=== PATIENT | female | born 1950 | race Caucasian/White ===

== ENCOUNTER 2019-05-14 06:09 | Inpatient (IN) | payer OTHER ==
[2019-05-14] MEDS ORDERED: NA CHLORIDE 0.9% 1,000 ML ONE (06:32)
[2019-05-14] MEDS ORDERED: ONDANSETRON 4 MG/2 ML VIAL ONE (06:33)
[2019-05-14 06:46] LABS: Absolute Lymphocytes (CBC) 0.2 K/uL (0.7-4.9); Basophils % 0.3 % (0-1.3); Hematocrit 44.2 % (36.0-45.0); Lymphocytes % 1.9 % (15.3-44.8); MPV 8.4 fL (7.6-11.3); RBC Red Blood Cell Count 4.93 M/uL (3.86-4.86)
[2019-05-14 07:11] LABS: Albumin 4.3 g/dL (3.4-5.0); Bilirubin Direct 0.2 mg/dL (0-0.2); Bilirubin Total 0.8 mg/dL (0.2-1.0); Blood Morphology Comment NOT SEEN (NOT SEEN); Platelet Estimate ADEQ; Potassium 3.8 mmol/L (3.5-5.1); Protein, Total 7.8 g/dL (6.4-8.2); Urine White Blood Cell Casts OK
--- NOTE | 2019-05-14 08:12 | RAD REPORT ---
EXAM DESCRIPTION: CTAbdomen Pelvis W Contrast - 05/14/2019 7:42 am CLINICAL HISTORY: Abdominal pain. NAUSEA / VOMITING COMPARISON: Abdomen Pelvis W Contrast dated 08/30/2017; CT ABD PELVIS W CONTRAST dated 03/09/2014; CT ABD PELVIS W CONTRAST dated 09/16/2012; CT ABD PELVIS W CONTRAST dated 04/21/2009 TECHNIQUE: Biphasic CT imaging of the abdomen and pelvis was performed with 100 ml non-ionic IV cont rast. All CT scans are performed using dose optimization technique as appropriate and may include automated exposure control or mA/KV adjustment according to patient size. FINDINGS: The lung bases are clear.Cholecystectomy. The liver, spleen, pancreas, adrenal glands and kidneys are within normal limits. No bowel obstruction, free air, free fluid or abscess. Mildly prominent fluid-filled small bowel loop s seen. The appendix is normal. No evidence of significant lymphadenopathy. L5-S1 postsurgical changes. IMPRESSION: Mildly prominent fluid-filled small bowel loops are present suggesting a nonspecific ent eritis.
[2019-05-14] MEDS ORDERED: PROMETHAZINE 25 MG/ML VIAL ONE (09:05)
[2019-05-14] MEDS ORDERED: Ringers Lactate 1,000 ML IV ONE (09:07)
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
[2019-05-14 09:19] LABS: Urine Blood NEGATIVE (NEG); Urine Glucose NEGATIVE (NEG); Urine Protein NEGATIVE (NEG); Urine Specific Gravity 1.015 (1.005-1.030); Urine pH 8.5 (5.0-7.0)
[2019-05-14] MEDS ORDERED: ONDANSETRON 4 MG/2 ML VIAL IV PRN (10:34)
[2019-05-14 10:50] VITALS: BMI 19.9
[2019-05-14] MEDS: Ringers Lactate 1,000 ML IV SCH ×2 (11:02→20:52)
[2019-05-14] MEDS ORDERED: PREDNISONE 4 MG PO SCH (17:00)
[2019-05-14] MEDS ORDERED: ACETAMINOPHEN 500 MG TAB PO PRN (17:30)
[2019-05-14] MEDS: CIPROFLOXACIN 400mg IV 400 MG/200 ML BAG IV SCH ×2 (18:14→20:52)
[2019-05-14 19:52] LABS: Urine Appearance CLEAR; Urine Bilirubin NEGATIVE (NEG); Urine Blood NEGATIVE (NEG); Urine Color YELLOW; Urine Glucose NEGATIVE (NEG); Urine Protein NEGATIVE (NEG); Urine Specific Gravity >=1.030 (1.005-1.030); Urine Urobilinogen 0.2 mg/dL (0.2-1.0); Urine pH 6.5 (5.0-7.0)
[2019-05-14 19:53] LABS: Urine Microscopic Reflex NO UMIC
[2019-05-14] MEDS ORDERED: ENOXAPARIN 30 MG/0.3 ML SQ ONE (21:13)
[2019-05-14] MEDS ORDERED: NA CHLORIDE 0.9% 250 ML IV ONE (21:13)
[2019-05-14] MEDS: HYDROCORTISONE SUC 100 MG INJ IV SCH (21:30)
[2019-05-14] MEDS ORDERED: NA CHLORIDE 0.9% 1,000 ML IV SCH (22:00)
[2019-05-15] MEDS: HYDROCORTISONE SUC 100 MG INJ IV SCH ×2 (00:15→05:39)
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
[2019-05-15 05:42] LABS: Absolute Lymphocytes (CBC) 0.4 K/uL (0.7-4.9); Basophils % 0.3 % (0-1.3); Hematocrit 34.2 % (36.0-45.0); Lymphocytes % 5.3 % (15.3-44.8); MPV 8.1 fL (7.6-11.3); RBC Red Blood Cell Count 3.79 M/uL (3.86-4.86)
[2019-05-15 05:58] LABS: Albumin 2.8 g/dL (3.4-5.0); Bilirubin Total 0.7 mg/dL (0.2-1.0); Potassium 3.8 mmol/L (3.5-5.1); Protein, Total 5.2 g/dL (6.4-8.2)
[2019-05-15] MEDS ORDERED: PANTOPRAZOLE 40MG TABLET PO SCH (06:30)
[2019-05-15] MEDS: NA CHLORIDE 0.9% 1,000 ML IV SCH ×2 (08:00→10:01)
[2019-05-15] MEDS ORDERED: PREDNISONE 5 MG TABLET PO SCH (09:00)
[2019-05-15] MEDS: PANTOPRAZOLE 40 MG TABLET PO SCH (09:00)
[2019-05-15] MEDS: SUCRALFATE 1 GM TABLET PO SCH (10:00)
[2019-05-15] MEDS: CIPROFLOXACIN 400mg IV 400 MG/200 ML BAG IV SCH ×2 (10:01→21:08)
[2019-05-15] MEDS: predniSONE 20 MG TAB PO SCH ×2 (10:01→21:08)
[2019-05-15] MEDS: TOFACITINIB CITRATE 11 MG PO SCH (10:02)
[2019-05-15 12:00] VITALS: O2SAT 96
--- NOTE | 2019-05-16 00:37 | PN ---
Date of Progress Note: 05/15/2019 Subjective: Patient was seen this morning for followup. She has felt better overnight. No abdomina l pain. No vomiting. Diarrhea is better. Objective: Vital Signs: Reviewed. HEENT: Unremarkable. Lungs: Clear to auscultation. Heart: Sounds normal. Abdomen: Soft. Bowel sounds normal. No guarding, rigidity, tenderness, distention. Extremities: No leg edema. Laboratory Data: White count 6.9, hemoglobin 12.1, platelets 172. Sodium 146, potassium 3.8, chlori de 115, bicarb 25, BUN 10, creatinine 0.78, glucose 127. Liver function tests unremarkable. Impression: 1.Acute gastroenteritis. 2.Volume depletion. 3.Chronic steroid therapy for rheumatoid arthritis. 4.Patient's blood pressure has improved after I saw her yesterday. Her systolic blood pressure drop ped down to 80 to 86 systolic range. Plan: She was given IV fluid bolus as well as IV steroid therapy was started. Solu-Cortef 100 mg ev enrrique 6 hours. She got 2 doses of Solu-Cortef overnight. This morning, she was feeling much better an d she is tolerating clear liquid diet well, so we will go ahead and advance it to soft diet. Discont inue IV steroid and start her on oral prednisone 20 mg b.i.d. today and starting tomorrow we will red uce dose of prednisone. Possible discharge to go home tomorrow depending on her condition. KYMBERLY/MODL Voice ID: [id number] Report ID: [id number]
[2019-05-16] MEDS: NA CHLORIDE 0.9% 1,000 ML IV SCH (04:00)
[2019-05-16] MEDS: SUCRALFATE 1 GM TABLET PO SCH (07:30)
[2019-05-16 08:18] VITALS: BP 108/58; TEMP 98.4
[2019-05-16] MEDS: CIPROFLOXACIN 400mg IV 400 MG/200 ML BAG IV SCH (08:33)
[2019-05-16] MEDS: predniSONE 20 MG TAB PO SCH (08:33)
[2019-05-16] MEDS: TOFACITINIB CITRATE 11 MG PO SCH (08:33)
[2019-05-16] MEDS: PANTOPRAZOLE 40 MG TABLET PO SCH (08:34)
--- NOTE | 2019-05-17 04:54 | DS ---
Date of Discharge: 05/16/2019 Disposition: Discharged to go home. Physical Examination: HEENT: Unremarkable. Lungs: Clear to auscultation. Heart: Heart sounds normal. Abdomen: Soft, bowel sounds normal. No guarding, rigidity, tenderness, or distention. Extremities: No leg edema. Discharge Medications And Instructions: 1.Continue all prior home medications except change prednisone, take 10 mg 2 tablets by mouth daily for 2 days, then 1 tablet by mouth daily for 2 days, then stop this particular dose and resume your u sual dose of prednisone, which is 5 mg 1 day and 4 mg next day. 2.Take Cipro 500 mg 2 times a day for 1 week. 3.Follow up at my office at 9:00 a.m. on 05/21/2019. Hospital Course: This is a 68-year-old female patient admitted to hospital with nausea, vomiting, an d diarrhea. Please see dictated H and P for more information. After patient was evaluated in the em ergency room, she was admitted to the hospital with acute gastroenteritis. She is on chronic steroid therapy for rheumatoid arthritis and systemic lupus erythematosus, which is being managed by her [facility] umatologist and she takes prednisone 5 mg 1 day and 4 mg next day. After she came into the hospital she was started on IV fluids. She did have episode of hypotension in the evening of admission with s ystolic blood pressure between 80-86, and she was given IV fluid bolus and IV steroid was started. H er condition improved. She was also started on IV antibiotic, which was Cipro. Day after admission, her condition improved and she initially was on clear liquid diet and as of yesterday she was starte d on soft diet. She has tolerated diet very well. Her nausea, vomiting, and diarrhea problem resolv ed. She started ambulating well and today we were able to discharge her to go home in stable conditi on with above-mentioned medications and instructions. Final Diagnoses: 1.Acute gastroenteritis. 2.Volume depletion. 3.Chronic steroid therapy. 4.Rheumatoid arthritis. 5.Gastroesophageal reflux disease. 6.Osteoporosis. Laboratory Data: Labs done during this hospitalization; initial sodium 143, potassium 3.8, chloride 108, bicarb 29, BUN 23, creatinine 0.93, glucose 124. Liver function tests unremarkable except SGOT 52. Initial lipase 2261, repeat lipase 327, which was normal. Repeat liver function test was normal on 05/15/2019. Creatinine 0.78. Initial white count 11.9, hemoglobin 15.3, platelets 208. Repeat white count 6.9, hemoglobin 12.1, platelets 172. KYMBERLY/MODL Voice ID: [id number] Report ID: [id number]
== END 2019-05-16 08:57 | disposition home or self-care (01) | DRG 392 ==
LOC: ER 06:09 → ERHOLD 09:09 → 2ND 09:44 → OBSVTOIN 21:14
PROVIDERS: ADMIT Internal Medicine; ATTEND Internal Medicine
DX: K52.9 Noninfective gastroenteritis and colitis, unspecified (principal); E86.9 Volume depletion, unspecified; M06.9 Rheumatoid arthritis, unspecified; K21.9 Gastro-esophageal reflux disease without esophagitis; M81.0 Age-related osteoporosis without current pathological fracture; M32.9 Systemic lupus erythematosus, unspecified; Z79.52 Long term (current) use of systemic steroids
CPT/HCPCS: 36415; 74177; 80048; 80053; 80076; 81003; 83690; 83735; 85025; 96361; 96374; 96375; 99285; G0378; J0744; J1650; J1720; J2405; J2550; J7030; J7120; J7512; Q9967

== ENCOUNTER 2023-02-17 18:33 | Emergency (ER) | payer OTHER ==
--- OUTSIDE RECORDS SUMMARY | 2023-02-17 18:42 | XMS REPORT | Continuity of Care Document ---
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 Omnipaque Yes Notes: Memori a 300 4-21 (Same l 15:54: as:Omnipaq [place] 00 ue 300). WASTE: F/P - Black; E - Municipal Trash Bin Omnipaque Yes Notes: Memori a 300 4-21 (Same l 15:54: as:Omnipaq [place] 00 ue 300). WASTE: F/P - Black; E - Municipal Trash Bin Omnipaque Yes Notes: Memori a 300 4-21 (Same l 15:54: as:Omnipaq [place] ue 300). WASTE: F/P - Black; E - Municipal Trash Bin Omnipaque Yes Notes: Memori a 300 4-21 (Same l 15:54: as:Omnipaq [place] ue 300). WASTE: F/P - Black; E - Municipal Trash Bin Omnipaque Yes Notes: Memori a 300 4-21 (Same l 15:54: as:Omnipaq [place] ue 300). WASTE: F/P - Black; E - Municipal Trash Bin Omnipaque Yes Notes: Memori a 300 4-21 (Same l 15:54: as:Omnipaq [place] ue 300). WASTE: F/P - Black; E - Municipal Trash Bin Omnipaque Yes Notes: Memori a 300 4-21 (Same l 15:54: as:Omnipaq [place] ue 300). WASTE: F/P - Black; E - Municipal Trash Bin Omnipaque Yes Notes: Memori a 300 4-21 (Same l 15:54: as:Omnipaq [place] ue 300). WASTE: F/P - Black; E - Municipal Trash Bin Lactated No 1,000 mL, Maurilio cyndy Ringers 10-22 Rate: 125 l 1,000 mL 14:57: ml/hr, Infuse over: 8 hr, Route: IV, Dosing Weight 50 kg, Total Volume: 1,000, Start date: 10/22/16 9:57:00 CDT, Duration: 30 day, Stop date: 11/21/16 9:56:00 CDT Ondansetron No Notes: Maurilio cyndy 10-22 (Same as: l 14:57: Zofran) MEDICATION WASTE Product Size: 4 mg Product Wasted: ___ mg Promethazin No Notes: Do M emoria e 10-22 not give l 14:57: IV push. (Same as: Phenergan) Acetaminoph No Notes: Do M emoria en 325 MG / 4-21 not exceed l Hydrocodone 14:57: 4gm/day of [place] Bitartrate 00 acetaminop 10 MG Oral hen. (Same Tablet as: [place] 325/10) Hydromorpho No Notes: Maurilio cyndy ne 4-21 Same as l 14:57: Dilaudid [place] 00 Lactated No 1,000 mL, Maurilio cyndy Ringers 4-21 Rate: 125 l 1,000 mL 14:57: ml/hr, [place] 00 Infuse over: 8 hr, Route: IV, Dosing Weight 50 kg, Total Volume: 1,000, Start date: 10/22/16 9:57:00 CDT, Duration: 30 day, Stop date: 11/21/16 9:56:00 CDT Ondansetron No Notes: Maurilio cyndy 4-21 (Same as: l 14:57: Zofran) [place] 00 MEDICATION WASTE Product Size: 4 mg Product Wasted: ___ mg Promethazin No Notes: Do M emoria e 4-21 not give l 14:57: IV push. [place] 00 (Same as: Phenergan) Acetaminoph No Notes: Do M emoria en 325 MG / 4-21 not exceed l Hydrocodone 14:57: 4gm/day of [place] Bitartrate 00 acetaminop 10 MG Oral hen. (Same Tablet as: [place] 325/10) Hydromorpho No Notes: Maurilio cyndy ne 4-21 Same as l 14:57: Dilaudid [place] 00 Lactated No 1,000 mL, Maurilio cyndy Ringers 4-21 Rate: 125 l 1,000 mL 14:57: ml/hr, [place] 00 Infuse over: 8 hr, Route: IV, Dosing Weight 50 kg, Total Volume: 1,000, Start date: 10/22/16 9:57:00 CDT, Duration: 30 day, Stop date: 11/21/16 9:56:00 CDT Ondansetron No Notes: Maurilio cyndy 4-21 (Same as: l 14:57: Zofran) [place] 00 MEDICATION WASTE Product Size: 4 mg Product Wasted: ___ mg Promethazin No Notes: Do M emoria e 4-21 not give l 14:57: IV push. [place] 00 (Same as: Phenergan) Acetaminoph No Notes: Do M emoria en 325 MG / 4-21 not exceed l Hydrocodone 14:57: 4gm/day of [place] Bitartrate 00 acetaminop 10 MG Oral hen. (Same Tablet as: [place] 325/10) Hydromorpho No Notes: Maurilio cyndy ne 4-21 Same as l 14:57: Dilaudid [place] 00 Lactated No 1,000 mL, Maurilio cyndy Ringers 4-21 Rate: 125 l 1,000 mL 14:57: ml/hr, [place] 00 Infuse over: 8 hr, Route: IV, Dosing Weight 50 kg, Total Volume: 1,000, Start date: 10/22/16 9:57:00 CDT, Duration: 30 day, Stop date: 11/21/16 9:56:00 CDT Ondansetron No Notes: Maurilio cyndy 4-21 (Same as: l 14:57: Zofran) [place] 00 MEDICATION WASTE Product Size: 4 mg Product Wasted: ___ mg Promethazin No Notes: Do M emoria e 4-21 not give l 14:57: IV push. [place] 00 (Same as: Phenergan) Acetaminoph No Notes: Do M emoria en 325 MG / 4-21 not exceed l Hydrocodone 14:57: 4gm/day of [place] Bitartrate 00 acetaminop 10 MG Oral hen. (Same Tablet as: [place] 325/10) Hydromorpho No Notes: Maurilio cyndy ne 4-21 Same as l 14:57: Dilaudid [place] 00 Lactated No 1,000 mL, Maurilio cyndy Ringers 4-21 Rate: 125 l 1,000 mL 14:57: ml/hr, [place] 00 Infuse over: 8 hr, Route: IV, Dosing Weight 50 kg, Total Volume: 1,000, Start date: 10/22/16 9:57:00 CDT, Duration: 30 day, Stop date: 11/21/16 9:56:00 CDT Ondansetron No Notes: Maurilio cyndy 4-21 (Same as: l 14:57: Zofran) [place] MEDICATION WASTE Product Size: 4 mg Product Wasted: ___ mg Promethazin No Notes: Do M emoria e 4-21 not give l 14:57: IV push. [place] (Same as: Phenergan) Acetaminoph No Notes: Do M emoria en 325 MG / 4-21 not exceed l Hydrocodone 14:57: 4gm/day of [place] Bitartrate 00 acetaminop 10 MG Oral hen. (Same Tablet as: [place] 325/10) Hydromorpho No Notes: Maurilio cyndy ne 4-21 Same as l 14:57: Dilaudid [place] Lactated No 1,000 mL, Maurilio cyndy Ringers 10-22 Rate: 125 l 1,000 mL 14:57: ml/hr, [place] 00 Infuse over: 8 hr, Route: IV, Dosing Weight 50 kg, Total Volume: 1,000, Start date: 10/22/16 9:57:00 CDT, Duration: 30 day, Stop date: 11/21/16 9:56:00 CDT Ondansetron No Notes: Maurilio cyndy 4-21 (Same as: l 14:57: Zofran) [place] 00 MEDICATION WASTE Product Size: 4 mg Product Wasted: ___ mg Promethazin No Notes: Do M emoria e 4-21 not give l 14:57: IV push. [place] (Same as: Phenergan) Acetaminoph No Notes: Do M emoria en 325 MG / 4-21 not exceed l Hydrocodone 14:57: 4gm/day of [place] Bitartrate 00 acetaminop 10 MG Oral hen. (Same Tablet as: [place] 325/10) Hydromorpho No Notes: Maurilio cyndy ne 4-21 Same as l 14:57: Dilaudid [place] 00 Lactated No 1,000 mL, Maurilio cyndy Ringers 4-21 Rate: 125 l 1,000 mL 14:57: ml/hr, [place] 00 Infuse over: 8 hr, Route: IV, Dosing Weight 50 kg, Total Volume: 1,000, Start date: 10/22/16 9:57:00 CDT, Duration: 30 day, Stop date: 11/21/16 9:56:00 CDT Ondansetron No Notes: Maurilio cyndy 4-21 (Same as: l 14:57: Zofran) [place] 00 MEDICATION WASTE Product Size: 4 mg Product Wasted: ___ mg Promethazin No Notes: Do M emoria e 4-21 not give l 14:57: IV push. [place] (Same as: Phenergan) Acetaminoph No Notes: Do M emoria en 325 MG / 4-21 not exceed l Hydrocodone 14:57: 4gm/day of [place] Bitartrate 00 acetaminop 10 MG Oral hen. (Same Tablet as: [place] 325/10) Hydromorpho No Notes: Maurilio cyndy ne 4-21 Same as l 14:57: Dilaudid [place] 00 Lactated No 1,000 mL, Maurilio cyndy Ringers 4-21 Rate: 125 l 1,000 mL 14:57: ml/hr, [place] 00 Infuse over: 8 hr, Route: IV, Dosing Weight 50 kg, Total Volume: 1,000, Start date: 10/22/16 9:57:00 CDT, Duration: 30 day, Stop date: 11/21/16 9:56:00 CDT Ondansetron No Notes: Maurilio cyndy 4-21 (Same as: l 14:57: Zofran) [place] 00 MEDICATION WASTE Product Size: 4 mg Product Wasted: ___ mg Promethazin No Notes: Do M emoria e 4-21 not give l 14:57: IV push. [place] 00 (Same as: Phenergan) Acetaminoph No Notes: Do M emoria en 325 MG / 4-21 not exceed l Hydrocodone 14:57: 4gm/day of [place] Bitartrate 00 acetaminop 10 MG Oral hen. (Same Tablet as: [place] 325/10) Hydromorpho 2017-0 No Notes: Maurilio cyndy ne 4-21 Same as l 14:57: Dilaudid [place] 00 Lactated 2017-0 No 1,000 mL, Maurilio cyndy Ringers 4-21 Rate: 125 l 1,000 mL 13:47: ml/hr, [place] 00 Infuse over: 8 hr, Route: IV, Dosing Weight 50 kg, Total Volume: 1,000, Start date: 10/22/16 8:47:00 CDT, Duration: 30 day, Stop date: 11/21/16 8:46:00 CDT Lactated 2017-0 No 1,000 mL, Maurilio cyndy Ringers 4-21 Rate: 125 l 1,000 mL 13:47: ml/hr, [place] 00 Infuse over: 8 hr, Route: IV, Dosing Weight 50 kg, Total Volume: 1,000, Start date: 10/22/16 8:47:00 CDT, Duration: 30 day, Stop date: 11/21/16 8:46:00 CDT Lactated 2017-0 No 1,000 mL, Maurilio cyndy Ringers 4-21 Rate: 125 l 1,000 mL 13:47: ml/hr, [place] 00 Infuse over: 8 hr, Route: IV, Dosing Weight 50 kg, Total Volume: 1,000, Start date: 10/22/16 8:47:00 CDT, Duration: 30 day, Stop date: 11/21/16 8:46:00 CDT Lactated 2017-0 No 1,000 mL, Maurilio cyndy Ringers 4-21 Rate: 125 l 1,000 mL 13:47: ml/hr, [place] 00 Infuse over: 8 hr, Route: IV, Dosing Weight 50 kg, Total Volume: 1,000, Start date: 10/22/16 8:47:00 CDT, Duration: 30 day, Stop date: 11/21/16 8:46:00 CDT Lactated 2017-0 No 1,000 mL, Maurilio cyndy Ringers 4-21 Rate: 125 l 1,000 mL 13:47: ml/hr, [place] 00 Infuse over: 8 hr, Route: IV, Dosing Weight 50 kg, Total Volume: 1,000, Start date: 10/22/16 8:47:00 CDT, Duration: 30 day, Stop date: 11/21/16 8:46:00 CDT Lactated 2017-0 No 1,000 mL, Maurilio cyndy Ringers 4-21 Rate: 125 l 1,000 mL 13:47: ml/hr, [place] 00 Infuse over: 8 hr, Route: IV, Dosing Weight 50 kg, Total Volume: 1,000, Start date: 10/22/16 8:47:00 CDT, Duration: 30 day, Stop date: 11/21/16 8:46:00 CDT Lactated 2017-0 No 1,000 mL, Maurilio cyndy Ringers 4-21 Rate: 125 l 1,000 mL 13:47: ml/hr, [place] 00 Infuse over: 8 hr, Route: IV, Dosing Weight 50 kg, Total Volume: 1,000, Start date: 10/22/16 8:47:00 CDT, Duration: 30 day, Stop date: 11/21/16 8:46:00 CDT Lactated 2017-0 No 1,000 mL, Maurilio cyndy Ringers 4-21 Rate: 125 l 1,000 mL 13:47: ml/hr, [place] 00 Infuse over: 8 hr, Route: IV, Dosing Weight 50 kg, Total Volume: 1,000, Start date: 10/22/16 8:47:00 CDT, Duration: 30 day, Stop date: 11/21/16 8:46:00 CDT Promethazin No Notes: Do M emokaylaha e 09-23 not give l 14:17: IV push. (Same as: Phenergan) Hydromorpho No Notes: Maurilio cyndy ne -23 Same as l 14:17: Dilaudid Ondansetron No Notes: Maurilio cyndy 3-23 (Same as: l 14:17: Zofran) MEDICATION WASTE Product Size: 4 mg Product Wasted: ___ mg Lactated 2016-0 No 1,000 mL, Maurilio cyndy Ringers 3-23 Rate: 125 l 1,000 mL 14:17: ml/hr, [place] 00 Infuse over: 8 hr, Route: IV, Dosing Weight 50.909 kg, Total Volume: 1,000, Start date: 09/23/16 9:17:00 CDT, Duration: 30 day, Stop date: 10/23/16 9:16:00 CDT Acetaminoph No Notes: Do M emoria en 325 MG / 3-23 not exceed l Hydrocodone 14:17: 4gm/day of [place] Bitartrate 00 acetaminop 10 MG Oral hen. (Same Tablet as: [place] 325/10) Promethazin No Notes: Do M emoria e 3-23 not give l 14:17: IV push. [place] 00 (Same as: Phenergan) Hydromorpho No Notes: Maurilio cyndy ne 3-23 Same as l 14:17: Dilaudid [place] Ondansetron No Notes: Maurilio cyndy 3-23 (Same as: l 14:17: Zofran) [place] 00 MEDICATION WASTE Product Size: 4 mg Product Wasted: ___ mg Lactated No 1,000 mL, Maurilio cyndy Ringers - Rate: 125 l 1,000 mL 14:17: ml/hr, [place] 00 Infuse over: 8 hr, Route: IV, Dosing Weight 50.909 kg, Total Volume: 1,000, Start date: 09/23/16 9:17:00 CDT, Duration: 30 day, Stop date: 10/23/16 9:16:00 CDT Acetaminoph No Notes: Do M emoria en 325 MG / 3-23 not exceed l Hydrocodone 14:17: 4gm/day of [place] Bitartrate 00 acetaminop 10 MG Oral hen. (Same Tablet as: [place] 325/10) Promethazin No Notes: Do M emoria e 3-23 not give l 14:17: IV push. [place] 00 (Same as: Phenergan) Hydromorpho No Notes: Maurilio cyndy ne 3-23 Same as l 14:17: Dilaudid [place] Ondansetron No Notes: Maurilio cyndy 3-23 (Same as: l 14:17: Zofran) [place] 00 MEDICATION WASTE Product Size: 4 mg Product Wasted: ___ mg Lactated No 1,000 mL, Maurilio cyndy Ringers 3-23 Rate: 125 l 1,000 mL 14:17: ml/hr, [place] 00 Infuse over: 8 hr, Route: IV, Dosing Weight 50.909 kg, Total Volume: 1,000, Start date: 09/23/16 9:17:00 CDT, Duration: 30 day, Stop date: 10/23/16 9:16:00 CDT Acetaminoph No Notes: Do M emoria en 325 MG / 3-23 not exceed l Hydrocodone 14:17: 4gm/day of [place] Bitartrate 00 acetaminop 10 MG Oral hen. (Same Tablet as: [place] 325/10) Promethazin No Notes: Do M emoria e 3-23 not give l 14:17: IV push. [place] (Same as: Phenergan) Hydromorpho No Notes: Maurilio cyndy ne -23 Same as l 14:17: Dilaudid [place] 00 Ondansetron No Notes: Maurilio cyndy 3-23 (Same as: l 14:17: Zofran) [place] 00 MEDICATION WASTE Product Size: 4 mg Product Wasted: ___ mg Lactated No 1,000 mL, Maurilio cyndy Ringers 3-23 Rate: 125 l 1,000 mL 14:17: ml/hr, [place] 00 Infuse over: 8 hr, Route: IV, Dosing Weight 50.909 kg, Total Volume: 1,000, Start date: 09/23/16 9:17:00 CDT, Duration: 30 day, Stop date: 10/23/16 9:16:00 CDT Acetaminoph No Notes: Do M emoria en 325 MG / 3-23 not exceed l Hydrocodone 14:17: 4gm/day of [place] Bitartrate 00 acetaminop 10 MG Oral hen. (Same Tablet as: [place] 325/10) Promethazin No Notes: Do M emoria e 3-23 not give l 14:17: IV push. [place] (Same as: Phenergan) Hydromorpho No Notes: Maurilio cyndy ne 3-23 Same as l 14:17: Dilaudid [place] 00 Ondansetron No Notes: Maurilio cyndy 3-23 (Same as: l 14:17: Zofran) [place] 00 MEDICATION WASTE Product Size: 4 mg Product Wasted: ___ mg Lactated No 1,000 mL, Maurilio cyndy Ringers 3-23 Rate: 125 l 1,000 mL 14:17: ml/hr, [place] 00 Infuse over: 8 hr, Route: IV, Dosing Weight 50.909 kg, Total Volume: 1,000, Start date: 09/23/16 9:17:00 CDT, Duration: 30 day, Stop date: 10/23/16 9:16:00 CDT Acetaminoph No Notes: Do M emoria en 325 MG / -23 not exceed l Hydrocodone 14:17: 4gm/day of [place] Bitartrate 00 acetaminop 10 MG Oral hen. (Same Tablet as: [place] 325/10) Promethazin No Notes: Do M emoria e 3-23 not give l 14:17: IV push. [place] 00 (Same as: Phenergan) Hydromorpho No Notes: Maurilio cyndy ne 3-23 Same as l 14:17: Dilaudid Ondansetron No Notes: Maurilio cyndy 3-23 (Same as: l 14:17: Zofran) [place] 00 MEDICATION WASTE Product Size: 4 mg Product Wasted: ___ mg Lactated No 1,000 mL, Maurilio cyndy Ringers 3-23 Rate: 125 l 1,000 mL 14:17: ml/hr, [place] 00 Infuse over: 8 hr, Route: IV, Dosing Weight 50.909 kg, Total Volume: 1,000, Start date: 09/23/16 9:17:00 CDT, Duration: 30 day, Stop date: 10/23/16 9:16:00 CDT Acetaminoph No Notes: Do M emoria en 325 MG / 3-23 not exceed l Hydrocodone 14:17: 4gm/day of [place] Bitartrate 00 acetaminop 10 MG Oral hen. (Same Tablet as: [place] 325/10) Promethazin No Notes: Do M emoria e 3-23 not give l 14:17: IV push. [place] (Same as: Phenergan) Hydromorpho No Notes: Maurilio cyndy ne 3-23 Same as l 14:17: Dilaudid [place] Ondansetron No Notes: Maurilio cyndy 3-23 (Same as: l 14:17: Zofran) [place] 00 MEDICATION WASTE Product Size: 4 mg Product Wasted: ___ mg Lactated No 1,000 mL, Maurilio cyndy Ringers 3-23 Rate: 125 l 1,000 mL 14:17: ml/hr, [place] 00 Infuse over: 8 hr, Route: IV, Dosing Weight 50.909 kg, Total Volume: 1,000, Start date: 09/23/16 9:17:00 CDT, Duration: 30 day, Stop date: 10/23/16 9:16:00 CDT Acetaminoph No Notes: Do M emoria en 325 MG / 09-23 not exceed l Hydrocodone 14:17: 4gm/day of [place] Bitartrate 00 acetaminop 10 MG Oral hen. (Same Tablet as: [place] 325/10) Promethazin No Notes: Do M emoria e -23 not give l 14:17: IV push. [place] 00 (Same as: Phenergan) Hydromorpho No Notes: Maurilio cyndy ne 3-23 Same as l 14:17: Dilaudid [place] 00 Ondansetron No Notes: Maurilio cyndy 3-23 (Same as: l 14:17: Zofran) [place] 00 MEDICATION WASTE Product Size: 4 mg Product Wasted: ___ mg Lactated No 1,000 mL, Maurilio cyndy Ringers 3-23 Rate: 125 l 1,000 mL 14:17: ml/hr, [place] 00 Infuse over: 8 hr, Route: IV, Dosing Weight 50.909 kg, Total Volume: 1,000, Start date: 09/23/16 9:17:00 CDT, Duration: 30 day, Stop date: 10/23/16 9:16:00 CDT Acetaminoph 2017-0 No Notes: Do M emoria en 325 MG / 09-23 not exceed l Hydrocodone 14:17: 4gm/day of [place] Bitartrate 00 acetaminop 10 MG Oral hen. (Same Tablet as: [place] 325/10) Lactated 2017-0 No 1,000 mL, Maurilio cyndy Ringers 3-23 Rate: 125 l 1,000 mL 13:39: ml/hr, [place] 00 Infuse over: 8 hr, Route: IV, Dosing Weight 50.909 kg, Total Volume: 1,000, Start date: 09/23/16 8:39:00 CDT, Duration: 30 day, Stop date: 10/23/16 8:38:00 CDT Lactated 2017-0 No 1,000 mL, Maurilio cyndy Ringers 3-23 Rate: 125 l 1,000 mL 13:39: ml/hr, [place] 00 Infuse over: 8 hr, Route: IV, Dosing Weight 50.909 kg, Total Volume: 1,000, Start date: 09/23/16 8:39:00 CDT, Duration: 30 day, Stop date: 10/23/16 8:38:00 CDT Lactated 2017-0 No 1,000 mL, Maurilio cyndy Ringers 3-23 Rate: 125 l 1,000 mL 13:39: ml/hr, [place] 00 Infuse over: 8 hr, Route: IV, Dosing Weight 50.909 kg, Total Volume: 1,000, Start date: 09/23/16 8:39:00 CDT, Duration: 30 day, Stop date: 10/23/16 8:38:00 CDT Lactated 2017-0 No 1,000 mL, Maurilio cyndy Ringers 3-23 Rate: 125 l 1,000 mL 13:39: ml/hr, [place] 00 Infuse over: 8 hr, Route: IV, Dosing Weight 50.909 kg, Total Volume: 1,000, Start date: 09/23/16 8:39:00 CDT, Duration: 30 day, Stop date: 10/23/16 8:38:00 CDT Lactated 2017-0 No 1,000 mL, Maurilio cyndy Ringers 3-23 Rate: 125 l 1,000 mL 13:39: ml/hr, [place] 00 Infuse over: 8 hr, Route: IV, Dosing Weight 50.909 kg, Total Volume: 1,000, Start date: 09/23/16 8:39:00 CDT, Duration: 30 day, Stop date: 10/23/16 8:38:00 CDT Lactated 2017-0 No 1,000 mL, Maurilio cyndy Ringers 3-23 Rate: 125 l 1,000 mL 13:39: ml/hr, [place] 00 Infuse over: 8 hr, Route: IV, Dosing Weight 50.909 kg, Total Volume: 1,000, Start date: 09/23/16 8:39:00 CDT, Duration: 30 day, Stop date: 10/23/16 8:38:00 CDT Lactated 2017-0 No 1,000 mL, Maurilio cyndy Ringers 3-23 Rate: 125 l 1,000 mL 13:39: ml/hr, [place] 00 Infuse over: 8 hr, Route: IV, Dosing Weight 50.909 kg, Total Volume: 1,000, Start date: 09/23/16 8:39:00 CDT, Duration: 30 day, Stop date: 10/23/16 8:38:00 CDT Lactated 2017-0 No 1,000 mL, Maurilio cyndy Ringers 3-23 Rate: 125 l 1,000 mL 13:39: ml/hr, [place] 00 Infuse over: 8 hr, Route: IV, Dosing Weight 50.909 kg, Total Volume: 1,000, Start date: 09/23/16 8:39:00 CDT, Duration: 30 day, Stop date: 10/23/16 8:38:00 CDT Vitamin D3 2017-0 Yes 2,000 Memori a 2000 intl 3-15 IntlUnit = l units oral 17:19: 1 cap, PO, H ermann capsule 00 Daily, # 100 cap, 3 Refill(s) Vitamin D3 2017- Yes 2,000 Memori a 2000 intl 3-15 IntlUnit = l units oral 17:19: 1 cap, PO, H ermann capsule 00 Daily, # 100 cap, 3 Refill(s) Vitamin D3 2017- Yes 2,000 Memori a 2000 intl 3-15 IntlUnit = l units oral 17:19: 1 cap, PO, H ermann capsule 00 Daily, # 100 cap, 3 Refill(s) Vitamin D3 Yes 2,000 Memori a 1999 intl 3-15 IntlUnit = l units oral 17:19: 1 cap, PO, H ermann capsule 00 Daily, # 100 cap, 3 Refill(s) Vitamin D3 Yes 2,000 Memori a 1999 intl 3-15 IntlUnit = l units oral 17:19: 1 cap, PO, H ermann capsule 00 Daily, # 100 cap, 3 Refill(s) Vitamin D3 Yes 2,000 Memori a 1999 intl 3-15 IntlUnit = l units oral 17:19: 1 cap, PO, H ermann capsule 00 Daily, # 100 cap, 3 Refill(s) Vitamin D3 Yes 2,000 Memori a 1999 intl 3-15 IntlUnit = l units oral 17:19: 1 cap, PO, H ermann capsule 00 Daily, # 100 cap, 3 Refill(s) Vitamin D3 Yes 2,000 Memori a 1999 intl 3-15 IntlUnit = l units oral 17:19: 1 cap, PO, H ermann capsule 00 Daily, # 100 cap, 3 Refill(s) vitamin E Yes 400 Memoria 400 intl 3-15 IntlUnit = l units oral 17:18: 1 cap, PO, H ermann capsule 00 Daily, 0 Refill(s) Vitamin C Yes 500 mg = 1 Me moria 500 mg oral 3-15 tab, PO, l tablet 17:18: Daily, 0 [place] 00 Refill(s) multivitami Yes 1 tab, PO, Memoria n 3-15 Daily, 0 l 17:18: Refill(s) [place] 00 vitamin E Yes 400 Memoria 400 intl 3-15 IntlUnit = l units oral 17:18: 1 cap, PO, H ermann capsule 00 Daily, 0 Refill(s) Vitamin C Yes 500 mg = 1 Me moria 500 mg oral 3-15 tab, PO, l tablet 17:18: Daily, 0 [place] 00 Refill(s) multivitami Yes 1 tab, PO, Memoria n 3-15 Daily, 0 l 17:18: Refill(s) vitamin E Yes 400 Memoria 400 intl 3-15 IntlUnit = l units oral 17:18: 1 cap, PO, H ermann capsule 00 Daily, 0 Refill(s) Vitamin C Yes 500 mg = 1 Me moria 500 mg oral 3-15 tab, PO, l tablet 17:18: Daily, 0 [place] 00 Refill(s) multivitami Yes 1 tab, PO, Memoria n 3-15 Daily, 0 l 17:18: Refill(s) vitamin E Yes 400 Memoria 400 intl 3-15 IntlUnit = l units oral 17:18: 1 cap, PO, H ermann capsule 00 Daily, 0 Refill(s) Vitamin C Yes 500 mg = 1 Me moria 500 mg oral 3-15 tab, PO, l tablet 17:18: Daily, 0 [place] 00 Refill(s) multivitami Yes 1 tab, PO, Memoria n 3-15 Daily, 0 l 17:18: Refill(s) vitamin E Yes 400 Memoria 400 intl 3-15 IntlUnit = l units oral 17:18: 1 cap, PO, H ermann capsule 00 Daily, 0 Refill(s) Vitamin C Yes 500 mg = 1 Me moria 500 mg oral 3-15 tab, PO, l tablet 17:18: Daily, 0 [place] 00 Refill(s) multivitami Yes 1 tab, PO, Memoria n 3-15 Daily, 0 l 17:18: Refill(s) vitamin E Yes 400 Memoria 400 intl 3-15 IntlUnit = l units oral 17:18: 1 cap, PO, H ermann capsule 00 Daily, 0 Refill(s) Vitamin C Yes 500 mg = 1 Me moria 500 mg oral 3-15 tab, PO, l tablet 17:18: Daily, 0 [place] 00 Refill(s) multivitami Yes 1 tab, PO, Memoria n 3-15 Daily, 0 l 17:18: Refill(s) vitamin E Yes 400 Memoria 400 intl 3-15 IntlUnit = l units oral 17:18: 1 cap, PO, H ermann capsule 00 Daily, 0 Refill(s) Vitamin C Yes 500 mg = 1 Me moria 500 mg oral 3-15 tab, PO, l tablet 17:18: Daily, 0 [place] 00 Refill(s) multivitami Yes 1 tab, PO, Memoria n 3-15 Daily, 0 l 17:18: Refill(s) [place] 00 vitamin E Yes 400 Memoria 400 intl 3-15 IntlUnit = l units oral 17:18: 1 cap, PO, H ermann capsule 00 Daily, 0 Refill(s) Vitamin C Yes 500 mg = 1 Me moria 500 mg oral 3-15 tab, PO, l tablet 17:18: Daily, 0 [place] 00 Refill(s) multivitami Yes 1 tab, PO, Memoria n 3-15 Daily, 0 l 17:18: Refill(s) predniSONE Yes 5 mg = 1 Mem oria 5 mg oral 3-14 tab, PO, l tablet 19:03: Daily, 0 [place] 00 Refill(s) 1 ML Yes SUB-Q, Memoria abatacept 3-14 qWeek, 0 l 125 MG/ML 19:03: Refill(s) Her eduardo Prefilled 00 Syringe [Orencia] predniSONE Yes 5 mg = 1 Mem oria 5 mg oral 3-14 tab, PO, l tablet 19:03: Daily, 0 [place] Refill(s) 1 ML Yes SUB-Q, Memoria abatacept 3-14 qWeek, 0 l 125 MG/ML 19:03: Refill(s) Her eduardo Prefilled 00 Syringe [Orencia] predniSONE Yes 5 mg = 1 Mem oria 5 mg oral 3-14 tab, PO, l tablet 19:03: Daily, 0 [place] 00 Refill(s) 1 ML Yes SUB-Q, Memoria abatacept 3-14 qWeek, 0 l 125 MG/ML 19:03: Refill(s) Her eduardo Prefilled 00 Syringe [Orencia] predniSONE 2017 Yes 5 mg = 1 Mem oria 5 mg oral 3-14 tab, PO, l tablet 19:03: Daily, 0 [place] 00 Refill(s) 1 ML 2016- Yes SUB-Q, Memoria abatacept 3-14 qWeek, 0 l 125 MG/ML 19:03: Refill(s) Her eduardo Prefilled 00 Syringe [Orencia] predniSONE Yes 5 mg = 1 Mem [facility]ria 5 mg oral 3-14 tab, PO, l tablet 19:03: Daily, 0 [place] 00 Refill(s) 1 ML 2016- Yes SUB-Q, Memoria abatacept 3-14 qWeek, 0 l 125 MG/ML 19:03: Refill(s) Her eduardo Prefilled 00 Syringe [Orencia] predniSONE Yes 5 mg = 1 [facility] 5 mg oral 3-14 tab, PO, l tablet 19:03: Daily, 0 [place] 00 Refill(s) 1 ML Yes SUB-Q, Memoria abatacept 3-14 qWeek, 0 l 125 MG/ML 19:03: Refill(s) Her eduardo Prefilled 00 Syringe [Orencia] predniSONE Yes 5 mg = 1 Mem [facility]ria 5 mg oral 3-14 tab, PO, l tablet 19:03: Daily, 0 [place] 00 Refill(s) 1 ML Yes SUB-Q, Memoria abatacept 3-14 qWeek, 0 l 125 MG/ML 19:03: Refill(s) Her eduardo Prefilled 00 Syringe [Orencia] predniSONE Yes 5 mg = 1 [facility] 5 mg oral 3-14 tab, PO, l tablet 19:03: Daily, 0 [place] 00 Refill(s) 1 ML Yes SUB-Q, Memoria abatacept 3-14 qWeek, 0 l 125 MG/ML 19:03: Refill(s) Her eduardo Prefilled 00 Syringe [Orencia] omeprazole Yes 40 mg = 1 [place] 40 mg oral 3-14 cap, PO, l delayed 19:02: Daily, 0 [place] 00 Refill(s) capsule omeprazole 2017-0 Yes 40 mg = 1 Me [place] 40 mg oral 3-14 cap, PO, l delayed 19:02: Daily, 0 [place] release 00 Refill(s) capsule omeprazole 2017-0 Yes 40 mg = 1 [place] 40 mg oral 3-14 cap, PO, l delayed 19:02: Daily, 0 [place] release 00 Refill(s) capsule omeprazole 2017-0 Yes 40 mg = 1 Me moria 40 mg oral 3-14 cap, PO, l delayed 19:02: Daily, 0 Sabas n release 00 Refill(s) capsule omeprazole 2017-0 Yes 40 mg = 1 Me moria 40 mg oral 3-14 cap, PO, l delayed 19:02: Daily, 0 Sabas n release 00 Refill(s) capsule omeprazole 2017-0 Yes 40 mg = 1 Me moria 40 mg oral 3-14 cap, PO, l delayed 19:02: Daily, 0 Sabas n release 00 Refill(s) capsule omeprazole 2017-0 Yes 40 mg = 1 Me moria 40 mg oral 3-14 cap, PO, l delayed 19:02: Daily, 0 Sabas n release 00 Refill(s) capsule omeprazole 2017-0 Yes 40 mg = 1 Me moria 40 mg oral 3-14 cap, PO, l delayed 19:02: Daily, 0 Sabas n release 00 Refill(s) capsule Immunizations Ordered Immunization Filled Immunization Date Status Commen ts Source Name Name [facility] >12 YR 2022-03-10 Completed [facility] COVID-19 MRNA 00:00:00 [facility] BIVALENT VACCINATION PFIZER >12 YR 2022-03-10 Completed [facility] COVID-19 MRNA 00:00:00 [facility] BIVALENT VACCINATION [facility] COVID-19 MRNA 2021-10-05 Completed [facility]00 [facility] COVID-19 MRNA 2021-10-05 Completed [facility]00 [facility] COVID-19 MRNA 2021-03-03 Completed [facility]00 [facility] COVID-19 MRNA 2021-03-03 Completed [facility]:00 [facility] COVID-19 MRNA 2020-08-08 Completed [facility]:00 [facility] COVID-19 MRNA 2020-08-08 Completed [facility]:00 [facility] COVID-19 MRNA 2020-07-11 Completed [facility]:00 [facility] COVID-19 MRNA 2020-07-11 Completed [facility] VACCINATION 00:00:00 [facility] Pneumococcal 2020-04-17 Completed [facility] Polysaccharide 00:00:00 [facility] Pneumococcal 2020-04-17 Completed [facility] Polysaccharide 00:00:00 [facility] FLUZONE HIGH-DOSE PF 2020-03-29 Completed [facility]ist 00:00:00 [facility] FLUZONE HIGH-DOSE PF 2020-03-29 Completed [facility] 00:00:00 [facility] Pneumococcal 2019-04-17 Completed [facility] Conjugate 13-Valent 00:00:00 [facility] Pneumococcal 2019-04-17 Completed [facility] Conjugate 13-Valent 00:00:00 [facility] Vital Signs Vital Name Observation Time Observation Value Comments Source Body weight 2023-01-19 14:56:00 47.628 kg [facility] BMI 2023-01-19 14:56:00 18.60 kg/m2 [facility] Systolic blood 2023-01-19 14:56:00 114 mm[Hg] [facility] pressure Diastolic blood 2023-01-19 14:56:00 71 mm[Hg] [facility] pressure Heart rate 2023-01-19 14:56:00 70 /min [facility] Body height 2023-01-19 14:56:00 160 cm [facility] Respiratory rate 2023-01-19 14:40:00 16 /min [facility] Systolic blood 2022-09-01 15:30:00 106 mm[Hg] [facility] pressure Diastolic blood 2022-09-01 15:30:00 64 mm[Hg] [facility] pressure Heart rate 2022-09-01 15:30:00 76 /min [facility] Respiratory rate 2022-09-01 15:30:00 16 /min [facility] Body weight 2022-09-01 15:30:00 47.174 kg [facility] BMI 2022-09-01 15:30:00 18.28 kg/m2 [facility] Body height 2022-08-18 15:39:00 160.7 cm [facility] Respitory Rate 2018-04-21 13:10:00 [facility] [place] Systolic (mm Hg) 2018-04-21 13:10:00 Maurilio [facility] Diastolic (mm Hg) 2018-04-21 13:10:00 [facility] [place] Heart Rate 2018-04-21 13:10:00 [facility] [place] Systolic (mm Hg) 2018-04-21 13:00:00 Maurilio [facility] [place] Diastolic (mm Hg) 2018-04-21 13:00:00 [facility] Respitory Rate 2018-04-21 13:00:00 [facility] Heart Rate 2018-04-21 13:00:00 [facility] [place] Systolic (mm Hg) 2018-04-21 12:54:00 Maurilio [facility] [place] Diastolic (mm Hg) 2018-04-21 12:54:00 Mem [facility] Heart Rate 2018-04-21 12:54:00 [facility] [place] Respitory Rate 2018-04-21 12:54:00 [facility] BMI Calculated 2018-04-18 15:30:00 [facility] Weight 2018-04-18 15:30:00 [facility] [place] Height 2018-04-18 15:30:00 162.56 cm [facility] [place] Respitory Rate 2016-10-22 15:23:00 [facility] Systolic (mm Hg) 2016-10-22 15:23:00 Maurilio [facility] [place] Diastolic (mm Hg) 2016-10-22 15:23:00 Mem [facility] Respitory Rate 2016-10-22 15:08:00 [facility] Systolic (mm Hg) 2016-10-22 15:08:00 Maurilio [facility] [place] Diastolic (mm Hg) 2016-10-22 15:08:00 [facility] [place] Systolic (mm Hg) 2016-10-22 14:53:00 Maurilio [facility] [place] Diastolic (mm Hg) 2016-10-22 14:53:00 Mem [facility] Respitory Rate 2016-10-22 14:53:00 [facility] BMI Calculated 2016-10-22 13:20:00 [facility] Height 2016-10-22 13:20:00 162.56 cm [facility] [place] Weight 2016-10-22 13:20:00 [facility] [place] Temperature Oral (F) 2016-10-22 13:20:00 98.1 F [facility] [place] Height 2016-10-13 17:28:00 162.56 cm [facility] Weight 2016-10-13 17:28:00 [facility] [place] BMI Calculated 2016-10-13 17:28:00 [facility] [place] Respitory Rate 2016-09-23 14:45:00 [facility] [place] Heart Rate 2016-09-23 14:45:00 [facility] [place] Systolic (mm Hg) 2016-09-23 14:45:00 Maurilio [facility] [place] Diastolic (mm Hg) 2016-09-23 14:45:00 Mem [facility] Respitory Rate 2016-09-23 14:30:00 [facility] [place] Heart Rate 2016-09-23 14:30:00 [facility] [place] Systolic (mm Hg) 2016-09-23 14:30:00 Maurilio [facility] [place] Diastolic (mm Hg) 2016-09-23 14:30:00 [facility] [place] Respitory Rate 2016-09-23 14:17:00 [facility] [place] Systolic (mm Hg) 2016-09-23 14:17:00 Maurilio [facility] [place] Diastolic (mm Hg) 2016-09-23 14:17:00 [facility] [place] Heart Rate 2016-09-23 14:17:00 [facility] [place] BMI Calculated 2016-09-14 18:56:00 [facility] Weight 2016-09-14 18:56:00 [facility] Height 2016-09-14 18:56:00 162.56 cm [facility] Procedures Procedure Date / Time Performing Clinician Source Performed BONE DENSITY 2023-01-05 13:48:00 Deanne Galindo [facility] URINALYSIS, AUTOMATED WITH 2022-11-30 15:15:00 Richard Ruiz [facility] MICROSCOPY HEPATITIS C ANTIBODY 2022-11-30 13:01:00 Richard Ruiz [facility] HEPATITIS B SURFACE 2022-11-30 13:01:00 Richard Ruiz [facility] ANTIGEN QUANTIFERON-TB GOLD 2022-11-30 13:01:00 Richard Ruiz [facility] PLUS, 1 TUBE COMPREHENSIVE METABOLIC 2022-11-30 13:01:00 Richard Ruiz [facility] PANEL C-REACTIVE PROTEIN 2022-11-30 13:01:00 Richard Ruiz [facility] CBC WITH PLATELET AND 2022-11-30 13:01:00 Richard Ruiz [facility] DIFFERENTIAL SEDIMENTATION RATE 2022-11-30 13:01:00 Richard Ruiz [facility] COMPREHENSIVE METABOLIC 2022-08-04 13:40:00 Richard Ruiz [facility] PANEL C-REACTIVE PROTEIN 2022-08-04 13:40:00 Richard Ruiz [facility] URINALYSIS, AUTOMATED WITH 2022-08-04 13:40:00 Richard Ruiz [facility] MICROSCOPY CBC WITH PLATELET AND 2022-08-04 13:40:[address] [facility] DIFFERENTIAL SEDIMENTATION RATE 2022-08-04 13:40:00 Richard Ruiz [facility] COMPREHENSIVE METABOLIC 2022-06-03 13:57:[address] [facility] PANEL VITAMIN D 25 HYDROXY LEVEL 2022-06-03 13:57:00 Richard Ruiz [facility] CBC WITH PLATELET AND 2022-03-29 14:16:00 [facility] DIFFERENTIAL COMPREHENSIVE METABOLIC 2022-03-29 14:16:00 Richard Ruiz [facility] PANEL C-REACTIVE PROTEIN 2022-03-29 14:16:00 Richard Ruiz Kat[facility] SEDIMENTATION RATE 2022-03-29 14:16:00 Richard Ruzi [facility] URINALYSIS, AUTOMATED WITH 2022-03-29 14:16:00 Richard Ruiz [facility] MICROSCOPY URINALYSIS, AUTOMATED WITH 2022-03-29 05:00:00 Richard Ruiz [facility] MICROSCOPY COMPREHENSIVE METABOLIC 2021-12-09 18:01:00 [facility] PANEL C-REACTIVE PROTEIN 2021-12-09 18:01:00 Richard Ruiz [facility] URINALYSIS, AUTOMATED WITH 2021-12-09 18:01:00 Richard Ruiz [facility] MICROSCOPY CBC WITH PLATELET AND 2021-12-09 18:01:[address] [facility] DIFFERENTIAL SEDIMENTATION RATE 2021-12-09 18:01:00 Richard Ruiz [facility] BONE DENSITY 2021-11-23 13:34:58 Richard Ruiz [facility] Laminectomy 2017-12-05 05:00:00 [facility] Her eduardo Fusion of lumbar 2015-03-04 00:00:00 [facility] Iam reyann spine<sup>1</sup> Cholecystectomy 2004-07-04 00:00:00 [facility] Her eduardo Bilateral tubal ligation 1978-07-04 00:00:00 [facility] orial James Exploratory laparotomy 1971-07-04 00:00:00 Lizette Ramirez Plan of Care Planned Activity Planned Date Details Comments Source Future Scheduled 2023-02-10 Screening for [facility] Test 08:33:44 malignant neoplasm of colon (procedure) [code = 629172056] Future Scheduled 2023-02-10 Screening for [facility] Test 08:33:44 malignant neoplasm of colon (procedure) [code = 768069532] Future Scheduled 2023-02-10 Screening for [facility] Test 08:33:44 malignant neoplasm of colon (procedure) [code = 077226409] Future Scheduled 2023-02-10 SHINGLES VACCINES (1 Met [facility] Test 08:33:44 of 2) [code = SHINGLES VACCINES (1 of 2)] Future Scheduled 2023-02-10 BREAST CANCER [facility] Test 08:33:44 SCREENING [code = BREAST CANCER SCREENING] Future Scheduled 2023-02-10 COVID-19 VACCINE (6 - [facility] Test 08:33:44 Moderna series) [code = COVID-19 VACCINE (6 - Moderna series)] Future Scheduled 2023-02-10 INFLUENZA VACCINE [facility] Test 08:33:44 [code = INFLUENZA VACCINE] Future Scheduled 2023-02-10 Screening for [facility] Test 08:33:44 malignant neoplasm of colon (procedure) [code = 718054994] Future Scheduled 2023-02-10 Screening for [facility] Test 08:33:44 malignant neoplasm of colon (procedure) [code = 955730734] Future Scheduled 2022-10-07 SHINGLES VACCINES (1 Met [facility] Test 01:14:42 of 2) [code = SHINGLES VACCINES (1 of 2)] Future Scheduled 2022-10-07 BREAST CANCER [facility] Test 01:14:42 SCREENING [code = BREAST CANCER SCREENING] Future Scheduled 2022-10-07 INFLUENZA VACCINE [facility] Test 01:14:42 [code = INFLUENZA VACCINE] Future Scheduled 2022-10-07 COLONOSCOPY SCREENING Me [facility] Test 01:14:42 [code = COLONOSCOPY SCREENING] Encounters Start End Encounter Admission Attending Care Care Encounter Source Date/Time Date/Time Type Type Clinicians Facility Department ID 2023-01-19 2023-01-19 Office Sara, 1.2.840.1 [id number] Methodi 10:00:00 12:33:11 Visit A. 33134.1.1 598 s t 3.430.2.7 Hospit a .3.778842 l .8 2023-01-19 2023-01-19 Infusion 1.2.840.1 [id number] [facility] 09:00:00 12:32:[address] 3.430.2.7 Hospit a .3.594509 l .8 2023-01-19 2023-01-19 Outpatient SARA, [facility] [id number] [address] [place] 00:00:00 00:00:[address] 2023-01-19 2023-01-19 Outpatient [facility] [id number] [address] [place] 00:00:00 00:00:[address] 2023-01-05 2023-01-05 Infusion 1.2.840.1 [id number] 21753 Method[facility] 09:00:00 12:48:[address] 3.430.2.7 Hospit a .3.940577 l .8 2023-01-05 2023-01-05 Outpatient [facility] [id number] [address] [place] 00:00:00 00:00:[address] 2023-01-05 2023-01-05 [facility] [id number] [address] [place] 00:00:00 00:00:[address] DEANNE [address] 2023-01-05 2023-01-05 Refvita Nielsen, 1.2.840.1 [id number] 9659 [facility] 00:00:00 00:00:[address] 3.430.2.7 Hospit a .3.620474 l .8 2022-09-03 2022-09-03 Orders Morales, 1.2.840.1 [id number] 5648 [facility] 00:00:00 00:00:00 Only Gavin 13840.1.[address] 3.430.2.7 Hospit a .3.626295 l .8 2022-09-03 2022-09-03 Orders Morales, 1.2.840.1 [id number] 5793 [facility] 00:00:00 00:00:00 Only Gavin 69507.1.[address] 3.430.2.7 Hospit a .3.767313 l .8 2022-09-01 2022-09-01 Infusion 1.2.840.1 [id number] 67074 [facility] 09:30:00 10:00:[address] 3.430.2.7 Hospit a .3.630286 l .8 2022-09-01 2022-09-01 Infusion 1.2.840.1 [id number] 01175 [facility] 09:30:00 10:00:[address] 3.430.2.7 Hospit a .3.349188 l .8 2022-09-01 2022-09-01 Travel 1.2.840.1 1.2.042.874 6562 [id number] [facility] 00:00:00 00:00:[address] 3.430.2.7 0.2.7.3.698 Ho spita .3.977672 084.8 l .8 2022-09-01 2022-09-01 Travel 1.2.840.1 1.2.049.314 5472 307052 [facility] 00:00:00 00:00:[address] 3.430.2.7 0.2.7.3.698 Ho spita .3.791794 084.8 l .8 2022-08-18 2022-08-18 Office Ruiz, 1.2.840.1 [id number] 7754 Method[facility] 09:30:00 10:00:00 Visit Richard Otero 95512.1.1 132 [address] t 3.430.2.7 Hospit a .3.263736 l .8 2022-08-18 2022-08-18 Office Ruiz, 1.2.840.1 [id number] 6138 Methodi 09:30:00 10:00:00 Visit Richard Otero 12350.1.1 132 s t 3.430.2.7 Hospit a .3.790291 l .8 2022-08-18 2022-08-18 Infusion 1.2.840.1 [id number] 98177 [facility] 09:00:00 09:30:[address] 3.430.2.7 Hospit a .3.232742 l .8 2022-08-18 2022-08-18 Infusion 1.2.840.1 [id number] 10758 71901 [facility] 09:00:00 09:30:[address] 3.430.2.7 Hospit a .3.908412 l .8 2022-08-18 2022-08-18 Travel 1.2.840.1 1.2.032.452 8701 484538 Methodi 00:00:00 00:00:[address] 3.430.2.7 0.2.7.3.698 Ho spita .3.460417 084.8 l .8 2022-08-18 2022-08-18 Travel 1.2.840.1 1.2.444.030 1170 957330 Methodi 00:00:00 00:00:[address] 3.430.2.7 0.2.7.3.698 Ho spita .3.810545 084.8 l .8 2022-07-27 2022-07-27 Refill Morales, 1.2.840.1 [id number] 1815 Method[facility] 00:00:00 00:00:[address] 3.430.2.7 Hospit a .3.508561 l .8 2022-07-27 2022-07-27 King Nielsen, 1.2.840.1 [id number] 6706 [facility] 00:00:00 00:00:[address] 3.430.2.7 Hospit a .3.428750 l .8 2022-06-17 2022-06-17 Infusion 1.2.840.1 [id number] 63527 87486 [facility] 10:00:00 10:50:[address] 3.430.2.7 Hospit a .3.172523 l .8 2022-06-17 2022-06-17 Infusion 1.2.840.1 [id number] 11302 [facility] 10:00:00 10:50:[address] 3.430.2.7 Hospit a .3.784454 l .8 2022-06-17 2022-06-17 Travel 1.2.840.1 1.2.127.892 8737 831420 [facility] 00:00:00 00:00:[address] 3.430.2.7 0.2.7.3.698 Ho spita .3.792186 084.8 l .8 2022-06-17 2022-06-17 Travel 1.2.840.1 1.2.203.747 3755 129099 [facility] 00:00:00 00:00:[address] 3.430.2.7 0.2.7.3.698 Ho spita .3.376158 084.8 l .8 2022-06-15 2022-06-15 Orders Sayago, 1.2.840.1 [id number] 7670 Methodi 00:00:00 00:00:00 Only Rebekah 67827.1.[address] 3.430.2.7 Hospit a .3.190534 l .8 2022-06-15 2022-06-15 Orders Sayago, 1.2.840.1 [id number] 9345 [facility]i 00:00:00 00:00:00 Only Rebekah 16263.1.[address] 3.430.2.7 Hospit a .3.018748 l .8 2022-04-23 2022-04-23 Orders Sayago, 1.2.840.1 [id number] 7368 [facility] 00:00:00 00:00:00 Only Rebekah 13038.1.[address] 3.430.2.7 Hospit a .3.051034 l .8 2022-04-23 2022-04-23 Orders Sayago, 1.2.840.1 [id number] 8071 [facility] 00:00:00 00:00:00 Only Rebekah 50779.1.[address] 3.430.2.7 Hospit a .3.433156 l .8 2022-04-12 2022-04-21 Office Ruiz, 1.2.840.1 [id number] 2710 [facility] 10:00:00 00:40:20 Visit Richard Otero 46280.1.1 514 s t 3.430.2.7 Hospit a .3.867245 l .8 2022-04-12 2022-04-21 Office Ruiz, 1.2.840.1 [id number] 3789 [facility] 10:00:00 00:40:20 Visit Richard Otero 41390.1.1 514 s t 3.430.2.7 Hospit a .3.462669 l .8 2022-04-12 2022-04-12 Infusion 1.2.840.1 [id number] 62701 15219 [facility] 09:00:00 09:30:[address] 3.430.2.7 Hospit a .3.354813 l .8 2022-04-12 2022-04-12 Infusion 1.2.840.1 [id number] 92516 Method[facility] 09:00:00 09:30:[address] 3.430.2.7 Hospit a .3.867245 l .8 2022-04-12 2022-04-12 Travel 1.2.840.1 1.2.818.158 8875 597879 Methodi 00:00:00 00:00:[address] 3.430.2.7 0.2.7.3.698 Ho spita .3.923234 084.8 l .8 2022-04-12 2022-04-12 Travel 1.2.840.1 1.2.310.461 1215 249254 [facility] 00:00:00 00:00:[address] 3.430.2.7 0.2.7.3.698 Ho spita .3.512652 084.8 l .8 2022-03-29 2022-03-29 Infusion 1.2.840.1 [id number] 10717 Method[facility] 09:00:00 12:30:[address] 3.430.2.7 Hospit a .3.920430 l .8 2022-03-29 2022-03-29 Infusion 1.2.840.1 [id number] 82993 [facility] 09:00:00 12:30:[address] 3.430.2.7 Hospit a .3.957972 l .8 2022-03-29 2022-03-29 Travel 1.2.840.1 1.2.125.944 4358 968342 Methodi 00:00:00 00:00:[address] 3.430.2.7 0.2.7.3.698 Ho spita .3.970683 084.8 l .8 2022-03-29 2022-03-29 Travel 1.2.840.1 1.2.502.598 6738 974389 Method[facility] 00:00:00 00:00:[address] 3.430.2.7 0.2.7.3.698 Ho spita .3.515983 084.8 l .8 2022-01-14 2022-01-14 Office Vrabec, 1.2.840.1 [id number] 4954 Methodi 10:30:00 12:08:51 Visit Shai Loaiza 54775.1.1 641 s t 3.430.2.7 Hospit a .3.404211 l .8 2022-01-14 2022-01-14 Travel 1.2.840.1 1.2.172.737 8864 423179 [facility] 00:00:00 00:00:[address] 3.430.2.7 0.2.7.3.698 Ho spita .3.245855 084.8 l .8 2021-12-21 2021-12-21 Office Ruiz, 1.2.840.1 [id number] 4456 Method[facility] 09:30:00 10:00:00 Visit Richard Otero 08203.1.1 604 s t 3.430.2.7 Hospit a .3.271846 l .8 2021-12-21 2021-12-21 Infusion 1.2.840.1 [id number] 76798 08696 Methodi 09:15:00 09:45:[address] 3.430.2.7 Hospit a .3.264976 l .8 2021-12-21 2021-12-21 Travel 1.2.840.1 1.2.188.003 7871 587356 [facility] 00:00:00 00:00:[address] 3.430.2.7 0.2.7.3.698 Ho spita .3.190329 084.8 l .8 2021-12-08 2021-12-08 Orders Sayago, 1.2.840.1 [id number] 9270 Methodi 00:00:00 00:00:00 Only Rebekah 51084.1.[address] 3.430.2.7 Hospit a .3.428946 l .8 2021-11-23 2021-11-23 Infusion 1.2.840.1 [id number] 10591 20208 [facility] 09:00:00 09:30:[address] 3.430.2.7 Hospit a .3.628915 l .8 2021-11-23 2021-11-23 Outpatient RUIZ, [facility] [id number] [place] 00:00:00 00:00:[address] 2021-11-23 2021-11-23 Travel 1.2.840.1 1.2.384.294 3752 869983 Methodi 00:00:00 00:00:[address] 3.430.2.7 0.2.7.3.698 Ho spita .3.600898 084.8 l .8 2021-08-10 2021-08-10 Outpatient [facility] [id number] [place] 00:00:00 00:00:[address] 2021-07-27 2021-07-27 Outpatient [facility] [id number] [address] [place] 00:00:00 00:00:[address] 2021-07-27 2021-07-27 Outpatient RUIZ, [facility] [id number] [address] [place] 00:00:00 00:00:[address] 2021-05-26 2021-05-26 Outpatient [facility] [id number] [address] [place] 00:00:00 00:00:[address] 2021-04-02 2021-04-02 Outpatient PRIV PRIV [id number] 3-2 [facility] 00:00:00 00:00:00 [id number] Med[facility] 2021-04-02 2021-04-02 Outpatient PRIV PRIV [id number] 3-2 [facility] 00:00:00 00:00:00 [id number] Medica l 2021-02-27 2021-02-27 Outpatient RUIZ, [facility] [id number] [address] [place] 00:00:00 00:00:[address] 2021-02-27 2021-02-27 Outpatient [facility] [id number] [address] [place] 00:00:00 00:00:[address] 2021-02-13 2021-02-13 Outpatient [facility] [id number] [address] [place] 00:00:00 00:00:[address] 2021-02-13 2021-02-13 Outpatient RUIZ, [facility] [id number] [address] [place] 00:00:00 00:00:[address] 2020-10-30 2020-10-30 Outpatient RUIZ, [facility] [id number] [address] [place] 00:00:00 00:00:[address] 2020-10-30 2020-10-30 Outpatient [facility] [id number] [address] [place] 00:00:00 00:00:[address] 2020-10-16 2020-10-16 Outpatient [facility] [id number] [address] [place] 00:00:00 00:00:[address] 2020-08-08 2020-08-[address] [facility] [id number] [facility] 11:40:00 11:40:00 [id number] [facility] 2020-08-08 2020-08-08 Outpatient Dione MICHELLE, [facility] [id number] [facility] 11:40:00 11:40:00 MYLENE [facility] 2020-07-11 2020-07-11 Outpatient Dione MICHELLE, [facility] [id number] 7Q-[id number] Univers 11:00:00 11:00:00 MYLENE [id number] [facility] 2020-07-11 2020-07-11 Outpatient R MIGUEL ANGEL, [facility] [id number] [facility] 11:00:00 11:00:00 MYLENE [facility] 2020-06-23 2020-06-23 Outpatient [facility] [id number] [address] [place] 00:00:00 00:00:[address] 2020-06-23 2020-06-23 Outpatient RUIZ, [facility] [id number] [place] 00:00:00 00:00:[address] 2020-06-09 2020-06-09 Outpatient [facility] [id number] [place] 00:00:00 00:00:[address] 2020-05-07 2020-05-07 Outpatient RUIZ, [facility] [id number] [address] [place] 00:00:00 00:00:[address] 2019-11-08 2019-11-08 Outpatient [facility] [id number] [place] 00:00:00 00:00:[address] 2019-11-08 2019-11-08 Outpatient RUIZ, [facility] [id number] [address] [place] 00:00:00 00:00:00 757 [facility] 2019-11-08 2019-11-08 Outpatient RUIZ, [facility] [id number] [address] [place] 00:00:00 00:00:00 849 [facility] 2018-04-21 2018-04-22 [facility] [id number] [facility] 10:45:00 04:59:00 Surgery r [place] 02 l Orthopedic [facility] 2018-04-21 2018-04-22 [facility] [id number] 10:45:00 04:59:00 Surgery r [place] 02 l Orthopedic [facility] 2018-04-21 2018-04-21 Outpatient DIONNA Sierra [facility] [id number] 05:45:00 23:59:00 Theron Smith 2018-03-14 2018-03-15 Outpt Diag nullFlavo [facility] [id number] Memoria 20:06:00 04:59:00 Services r Outpatient 00 l Imaging [place] 2018-03-14 2018-03-15 Outpt Diag nullFlavo [facility] [id number] Memoria 20:06:00 04:59:00 Services r Outpatient 00 l Imaging [place] 2018-03-14 2018-03-14 Outpatient KRISTI ChristineP [facility] [id number] 15:06:00 23:59:00 Richard Monroy 2018-03-14 2018-03-14 Outpatient KRISTI ChristineP [facility] [id number] 15:06:00 23:59:00 Richard Monroy 2016-10-22 2016-10-23 [facility] [id number] 12:47:00 04:59:00 Surgery r [place] 01 l [facility] 2016-10-22 2016-10-23 [facility] [id number] [address] 12:47:00 04:59:00 Surgery r [place] 01 l [facility] 2016-10-22 2016-10-22 Outpatient Levongabo [facility] [id number] 07:47:00 23:59:00 Theron Annie 2016-09-23 2016-09-24 [facility] [id number] [place] 12:42:00 04:59:00 Surgery r [place] 00 l [facility] 2016-09-23 2016-09-24 [facility] [id number] [place] 12:42:00 04:59:00 Surgery r [place] 00 l [facility]opedic [facility] 2016-09-23 2016-09-23 Outpatient Kayceelatonyagabo [facility] [id number] 07:42:00 23:59:00 Theron Annie 2015-03-05 2015-03-06 Outpatient [facility] [id number] Memoria 16:37:00 04:59:[address] 2015-03-05 2015-03-06 Outpatient [place] [id number] Memoria 16:37:00 04:59:[address] 2015-03-05 2015-03-05 Outpatient [place] [facility] [id number] 11:37:00 23:59:00 Richard Cobian Porfirio Results Test Description Test Time Test Comments Results Result Comments Source Comprehensive metabolic panel 2022-12-03 21:47:00 Test Item Value Reference Range Interpretation Comme nts Glucose (test code = 131 mg/dL 65-139 Non-fa sting reference 2345-7) interval BUN (test code = 3094-0) 18 mg/dL 7-25 Creatinine (test code = 0.87 mg/dL 0.60-1.00 2160-0) eGFR (test code = 72 See_Comment [place] [address]-2) the CKD-EPI 202 1 equation. To ca lculate the new eGFR fr om a previous Creati nine or Cystatin Cresul t, go to https://www.kid naomi.org/ professionals/k doqi/gfr %5Fcalculator [Automated mess age] The system which ge nerated this result tra nsmitted reference range : > OR = 60 mL/min/1.73m 2. The reference range was not used to interpr et this result as normal/abnormal . BUN/creatinine ratio NOT APPLICABLE See_Comment [Aut omated message] (test code = 3097-3) The sys tem which generated this result transmitted ref erence range: 6 - 22 ( calc). The reference r denise was not used to int erpret this result as normal/abnormal . Sodium (test code = 143 mmol/L 075-142 1515-2) Potassium (test code = 4.2 mmol/L 3.5-5.3 2823-3) Chloride (test code = 106 mmol/L 98-110 2075-0) CO2 (test code = 8-9) 30 mmol/L 20-32 Calcium (test code = 9.5 mg/dL 8.6-10.4 80723-8) Protein (test code = 6.2 g/dL 6.1-8.1 2885-2) Albumin, S (test code = 4.1 g/dL 3.6-5.1 1751-7) Globulin, total (test 2.1 See_Comment [Auto mated message] code = 42752-6) The system w [employer] generated this result transmitted ref erence range: 1.9 - 3. 7 g/dL (calc). The ref erence range was not u sed to interpret this result as normal/abnor mal. Albumin/globulin ratio 2.0 See_Comment [Aut omated message] (test code = 1759-0) The sys tem which generated this result transmitted ref erence range: 1.0 - 2. 5 (calc). The ref erence range was not u sed to interpret this result as normal/abnor mal. Total bilirubin (test 0.6 mg/dL 0.2-1.2 code = 1974-2) Alkaline phosphatase 55 U/L 37-153 (test code = 6768-6) AST (test code = 1920-8) 21 U/L 10-35 ALT (test code = 1742-6) 13 U/L 6-29 AILYN (test code = AILYN) FASTING:NOPATIENT UNABLE TO VOID; ADVISED TO RETURN FOR COLLECTION. FASTING: NO RAC (test code = RAC) Performing Organization Information: Site ID: DASHA Name: [facility] Address: [address] [place] [phone] Director: [facility]-reactive [id number] 21:47:00 Test Item Value Reference Range Interpretation Comments CRP (test 2.4 mg/L See_Comment [Automated mes sudeep] code = The system ic h 1987-11) generated this result transmit estuardo reference range : <=8.0. The refe rence range was not u sed to interpret th is result as normal/abnormal . AILYN (test FASTING:NOPATIENT code = AILYN) UNABLE TO VOID; ADVISED TO RETURN FOR COLLECTION. FASTING: NO RAC (test Performing code = RAC) Organization Information: Site ID: DASHA Name: [facility] Address: [address] [place] [phone] Director: [facility] with platelet and ajdrxqypgcrx4733-00-17 21:47:00 Test Item Value Reference Range Interpretation Comments WBC (test code = 4.5 See_Comment [Automated 0090-2) message] The system which generated this result transmitted reference range : 3.8 - 10.8 Thousand/uL. Th e reference range was not used to interpret this result as normal/abnormal . RBC (test code = 4.24 See_Comment [Automated 299-8) message] The system which generated this result transmitted reference range : 3.80 - 5.10 Million/uL. The reference range was not used to interpret this result as normal/abnormal . HGB (test code = 12.7 g/dL 11.7-15.5 718-7) HCT (test code = 37.5 % 35.0-45.0 4544-3) MCV (test code = 88.4 fL 80.0-100.0 787-2) MCH (test code = 30.0 pg 27.0-33.0 785-6) MCHC (test code = 33.9 g/dL 32.0-36.0 786-4) RDW (test code = 12.2 % 11.0-15.0 788-0) Platelet count 246 See_Comment [Automated (test code = message] The 777-3) system which generated this result transmitted reference range : 140 - 400 Thousand/uL. Th e reference range was not used to interpret this result as normal/abnormal . MPV (test code = 10.5 fL 7.5-12.5 776-5) Neutrophils, 2759 See_Comment [Automated absolute (test message] The code = 751-8) system which generated this result transmitted reference range : 1,500 - 7,800 cells/uL. The reference range was not used to interpret this result as normal/abnormal . Lymphocytes, 986 See_Comment [Automated absolute (test message] The code = 731-0) system which generated this result transmitted reference range : 850 - 3,900 cells/uL. The reference range was not used to interpret this result as normal/abnormal . Monocytes, 383 See_Comment [Automated absolute (test message] The code = 742-7) system which generated this result transmitted reference range : 200 - 950 cells/uL. The reference range was not used to interpret this result as normal/abnormal . Eosinophils, 324 See_Comment [Automated absolute (test message] The code = 711-2) system which generated this result transmitted reference range : 15 - 500 cells/uL. The reference range was not used to interpret this result as normal/abnormal . Basophils, 50 See_Comment [Automated absolute (test message] The code = 704-7) system which generated this result transmitted reference range : 0 - 200 cells/u L. The reference range was not used to interpr et this result as normal/abnormal . Neutrophils (test 61.3 % code = 770-8) Lymphocytes (test 21.9 % code = 736-9) Monocytes (test 8.5 % code = 5905-5) Eosinophils (test 7.2 % code = 713-8) Basophils + RC 1.1 % (test code = 706-2) AILYN (test code = FASTING:NOPATIENT AILYN) UNABLE TO VOID; ADVISED TO RETURN FOR COLLECTION. FASTING: NO RAC (test code = Performing RAC) Organization Information: Site ID: RGA [facility] Address: [address] [place] [phone] Director: Andrew L [facility]McC[facility]ed[facility] [id number] 21:47:00 Test Item Value Reference Range Interpretation Comments Sedimentation rate 11 mm/h See_Comment [Automat ed (test code = 4537-7) message ] The system which generated this result transmitted reference range : < OR = 30. The reference range was not used to interpret this result as normal/abnormal . AILYN (test code = FASTING:NOPATIENT AILYN) UNABLE TO VOID; ADVISED TO RETURN FOR COLLECTION. FASTING: NO RAC (test code = Performing RAC) Organization Information: Site ID: [facility]: [facility] Address: [address] [place] [address] Director: [facility] B surface [id number] 21:47:00 Test Item Value Reference Range Interpretation Comments Hepatitis B surface NON-REACTIVE NON-REACTIVE Ag (test code = 5196-1) AILYN (test code = AILYN) FASTING:NOPATIENT UNABLE TO VOID; ADVISED TO RETURN FOR COLLECTION. FASTING: NO RAC (test code = RAC) Performing Organization Information: Site ID: [facility]: [facility] Address: [address] [place] [address] Director: Andrew GarciaOtis R[facility] C [id number] 21:47:00 Test Item Value Reference Range Interpretation Comments Hepatitis C Ab NON-REACTIVE NON-REACTIVE (test code = 96527-5) Signal/cutoff 0.11 See_Comment HCV antibody was (test code = non-reactive. 85441-8) There is no laboratory evidence of HCV infection. In m ost cases, no furth er action is required. However,if rece nt HCV exposure is suspected, a te st for HCV RNA(stacey t code 25833) is suggested. For additional information ple ase refer tohttp://educat ion .[employer]. com/faq/CUC60e5 (Th is link is sahra mulligan provided for informational/e gudelia ational purpose s only.) [Automat ed message] The system which generated this result transmit estuardo reference range : <=1.00. The reference range was not used to interpret this result as normal/abnormal . AILYN (test code = FASTING:NOPATIENT AILYN) UNABLE TO VOID; ADVISED TO RETURN FOR COLLECTION. FASTING: NO RAC (test code = Performing RAC) Organization Information: Site ID: DASHA [facility]: [facility] Address: [address] [place] [phone] Director: Andrew Garcia [facility] ClinicsQuantiFERON-TB Gold Plus, 1 [id number] 21:47:00 Test Item Value Reference Interpretation Comments Range Quantiferon TB NEGATIVE NEGATIVE Negative test result. gold plus (test M. tuberculo sis code = 63255-5) complex infe ction unlikely. Quantiferon NIL 0.02 IU/mL (test code = 17559-2) Quantiferon >10.00 IU/mL mitogen minus NIL (test code = 99255-7) Quantiferon plus 0.00 IU/mL TB1 minus NIL (test code = 84456-8) Quantiferon plus 0.00 IU/mL The Nil tu be value TB2 minus NIL reflects the (test code = background 83207-9) interferongamma immune response of the patient's blood sample.This paulette ue has been subtracted from the patient'sdi splayed TB and Mitogen results. Lower than expected result s with the Mitogen tubeprevent false-negative Quantiferon wero dings bydetecting a p atient with a potentia l immunesuppressi ve condition and/o r suboptimal pre-analyticals pecimen handling. The T B1 Antigen tube is coated with theM. tuberculosis-sp ecific antigens design ed to elicitresponses from TB antigen prim ed CD4+ helperT-lymphoc ytes. The TB2 Antigen tube is coated with theM. tuberculosis-sp ecific antigens design ed to elicitresponses from TB antigen prim ed CD4+ helper and CD8+cytotoxic T-lymphocytes. For additional information, pl ease refer tohttps://educa tion.[employer]/faq /OAX639(This li nk is being provided for informational/e ducatio nal purposes on ly.) AILYN (test code = FASTING:NOPATIENT AILYN) UNABLE TO VOID; ADVISED TO RETURN FOR COLLECTION. FASTING: NO RAC (test code = Performing RAC) Organization Information: Site ID: YANNAA [facility] Address: [address] [place] [phone] Director: Andrew Garcia [facility] ClinicsUrinalysis, automated with [id number] 08:44:00 Test Item Value Reference Range Interpretation Comments Color, UA (test DARK YELLOW YELLOW code = 5778-6) Appearance, UA CLEAR CLEAR (test code = 5767-9) Specific gravity, 1.018 1.001-1.035 UA (test code = 5811-5) pH, UA (test code 7.0 5.0-8.0 = 5803-2) Glucose, UA (test NEGATIVE NEGATIVE code = 06915-5) Bilirubin, UA NEGATIVE NEGATIVE (test code = 5770-3) Ketones, UA (test NEGATIVE NEGATIVE code = 2514-8) Blood, UA (test NEGATIVE NEGATIVE code = 5794-3) Protein, UA (test NEGATIVE NEGATIVE code = 20845-5) Nitrite, UA (test NEGATIVE NEGATIVE code = 5802-4) Leukocyte NEGATIVE NEGATIVE esterase, UA (test code = 5799-2) WBC, UA (test NONE SEEN See_Comment [Automated code = 5821-4) message] The system which generated this result transmit estuardo reference range : < OR = 5 /HPF. Th e reference range was not used to interpret this result as normal/abnormal . RBC, UA (test NONE SEEN See_Comment [Automated code = 60943-3) message] The system which generated this result transmit estuardo reference range : < OR = 2 /HPF. Th e reference range was not used to interpret this result as normal/abnormal . Squamous NONE SEEN See_Comment [Automated epithelial cells, message] T he UA (test code = system which 10746-3) generated this result transmit estuardo reference range : < OR = 5 /HPF. Th e reference range was not used to interpret this result as normal/abnormal . Bacteria, UA NONE SEEN NONE SEEN /HPF (test code = 5769-5) Hyaline casts, UA NONE SEEN NONE SEEN /LPF (test code = 5796-8) Note: (test code This urine was = 8251-1) analyzed for th e presence of WBC , RBC, bacteria, casts, and othe r formed elements . Only those elements seen w ere reported. AILYN (test code = SPLIT 11/30/2022 AILYN) FROM 5462085 RAC (test code = Performing RAC) Organization Information: Site ID: DASHA Name: [facility] Address: [address] [place] [phone] Director: [facility] 25 hydroxy [id number] 05:24:00 Test Item Value Reference Range Interpretation Comments Vitamin D, 80 ng/mL 30-100 Vitamin D Statu s 25-hydroxy (test 25-OH Vitam in D: code = 1988-09) Deficiency: <20 ng/mLInsufficie ncy : 20 - 29 ng/mLOptimal: > or = 30 ng/mL For 25-OH Vitamin D testing on patients on D2-supplementat ion and patients fo r whom quantitati on of D2 and D3 fractions is required, the QuestAssureD(TM )25 -OH VIT D, (D2,D3), LC/MS/ MS is recommended: order code 9288 8 (patients >2yrs).See Note 1 Note 1 For additional information, please refer to http://[employer] .co m/faq/DKV686 (T his link is being provided for informational/e gudelia ational purpose s only.) AILYN (test code = FASTING:NO FASTING: AILYN) NO RAC (test code = Performing RAC) Organization Information: Site ID: DASHA Name: [facility] Address: [address] [place] [phone] Director: [facility] HospitalVitamin D 25 hydroxy [id number] 05:24:00 Test Item Value Reference Range Interpretation Comments Vitamin D, 80 ng/mL 30-100 Vitamin D Statu s 25-hydroxy (test 25-OH Vitam in D: code = 1988-09) Deficiency: < 20 ng/mLInsufficie ncy : 20 - 29 ng/mLOptimal: > or = 30 ng/mL For 25-OH Vitamin D testing on patients on D2-supplementat ion and patients fo r whom quantitati on of D2 and D3 fractions is required, the QuestAssureD(TM )25 -OH VIT D, (D2,D3), LC/MS/ MS is recommended: order code 9288 8 (patients >2yrs).See Note 1 Note 1 For additional information, please refer to http://educatio n.Q uestDiagnostics .co m/faq/FMY234 (T his link is being provided for informational/e gudelia ational purpose s only.) AILYN (test code = FASTING:NO FASTING: AILYN) NO RAC (test code = Performing RAC) Organization Information: Site ID: RGA [facility] Address: [address] [place] [phone] Director: Andrew Mckeon GirvydkvFWIRNIBBUB4631-63-82 16:45:00 Test Item Value Reference Range Interpretation Comments WBC X 10x3 (test code = WBC X 10x3) 7.1 3.7-10.4 [facility]MzrizjtLPKLDNLCCN3792-27-39 16:45:00 Test Item Value Reference Range Interpretation Comments Hct (test code = Hct) 42.8 36.0-48.0 [facility] HospitalOlvtbczUGGDBXDAMQ2554-63-56 16:45:00 Test Item Value Reference Range Interpretation Comments RBC X 10x6 (test code = RBC X 10x6) 4.77 4.20-5.40 [facility]2015-09-02 16:45:00 Test Item Value Reference Range Interpretation Comments eGFR (test code = eGFR) 69 [facility]2015-09-02 16:45:00 Test Item Value Reference Range Interpretation Comments Alk Phos (test code = Alk Phos) 65 39-136 [facility]2015-09-02 16:45:00 Test Item Value Reference Range Interpretation Comments ALANINE AMINOTRANSFERASE 20 See_Comment [A utomated message] (test code = ALANINE The sys tem which AMINOTRANSFERASE) generated this result transmitted ref erence range: <=65. Th e reference range was not used to int erpret this result as normal/abnormal . [facility]2015-09-02 16:45:00 Test Item Value Reference Range Interpretation Comments ASPARTATE TRANSAMINASE 25 See_Comment [Aut omated message] (test code = ASPARTATE The s ystem which TRANSAMINASE) generated this result transmitted ref erence range: <=37. Th e reference range was not used to interpr et this result as normal/abnormal . [facility]2015-09-02 16:45:00 Test Item Value Reference Range Interpretation Comments A/G Ratio (test code = A/G Ratio) 1.7 0.7-1.6 [facility]2015-09-02 16:45:00 Test Item Value Reference Range Interpretation Comments Bili Total (test code = Bili Total) 0.7 0.2-1.3 [facility]2015-09-02 16:45:00 Test Item Value Reference Range Interpretation Comments Sodium Lvl (test code = Sodium Lvl) 141 135-145 [facility]2015-09-02 16:45:00 Test Item Value Reference Range Interpretation Comments Creatinine Lvl (test code = Creatinine 0.9 0.5-1.4 Lvl) [facility]2015-09-02 16:45:00 Test Item Value Reference Range Interpretation Comments Potassium Lvl (test code = Potassium 3.8 3.5-5.1 Lvl) [facility]2015-09-02 16:45:00 Test Item Value Reference Range Interpretation Comments Glucose Lvl (test code = Glucose Lvl) 85 70-99 [facility]2015-09-02 16:45:00 Test Item Value Reference Range Interpretation Comments BUN (test code = BUN) 17 7-22 [facility]2015-09-02 16:45:00 Test Item Value Reference Range Interpretation Comments Calcium Lvl (test code = Calcium Lvl) 9.5 8.5-10.5 [facility]2015-09-02 16:45:00 Test Item Value Reference Range Interpretation Comments B/C Ratio (test code = B/C Ratio) 19 6-25 [facility]2015-09-02 16:45:00 Test Item Value Reference Range Interpretation Comments Total Protein (test code = Total 6.9 6.4-8.4 Protein) [facility]2015-09-02 16:45:00 Test Item Value Reference Range Interpretation Comments Chloride Lvl (test code = Chloride Lvl) 100 95-109 [facility]2015-09-02 16:45:00 Test Item Value Reference Range Interpretation Comments CO2 (test code = CO2) 31 24-32 [facility]2015-09-02 16:45:00 Test Item Value Reference Range Interpretation Comments AGAP (test code = AGAP) 13.8 10.0-20.0 [facility]2015-09-02 16:45:00 Test Item Value Reference Range Interpretation Comments Albumin Lvl (test code = Albumin Lvl) 4.3 3.5-5.0 [facility]2015-09-02 16:45:00 Test Item Value Reference Range Interpretation Comments Globulin (test code = Globulin) 2.6 2.0-4.0 [facility] HospitalOkhirutODPONIMGCV0277-48-79 16:45:00 Test Item Value Reference Range Interpretation Comments Monocytes (test code = Monocytes) 8.2 2.0-12.0 [facility] HospitalPcmzegaGECEWWXQKP4497-17-77 16:45:00 Test Item Value Reference Range Interpretation Comments Eosinophils (test code = 1.7 See_Comment [A utomated message] The Eosinophils) system which ge nerated this result tra nsmitted reference range : <=4.0. The reference r denise was not used to int erpret this result as normal/abnormal . [facility] HospitalDnwxqqnUESEWOGLWE9416-94-67 16:45:00 Test Item Value Reference Range Interpretation Comments Eosinophils # (test code 0.1 See_Comment [A utomated message] The = Eosinophils #) system whic h generated this result tra nsmitted reference range : <=0.5. The reference r denise was not used to int erpret this result as normal/abnormal . [facility] HospitalOepqsvxZJQKQRIUNR7947-06-48 16:45:00 Test Item Value Reference Range Interpretation Comments Monocytes # (test code 0.6 See_Comment [Aut omated message] The = Monocytes #) system which generated this result tra nsmitted reference range : <=0.8. The reference r denise was not used to int erpret this result as normal/abnormal . [facility] HospitalOjyeqzhMEFFJECPAP4985-26-05 16:45:00 Test Item Value Reference Range Interpretation Comments Segs (test code = Segs) 67.5 45.0-75.0 [facility] HospitalVkwnqbnGJBPOANURQ2493-68-48 16:45:00 Test Item Value Reference Range Interpretation Comments Lymphocytes (test code = Lymphocytes) 22.2 20.0-40.0 [facility] HospitalDuranqfQDTSRYHDLP5748-44-17 16:45:00 Test Item Value Reference Range Interpretation Comments Basophils (test code = 0.4 See_Comment [Aut omated message] The Basophils) system which ge nerated this result tra nsmitted reference range : <=1.0. The reference r denise was not used to int erpret this result as normal/abnormal . [facility] HospitalDgdhplzVDATTFKCNB4240-63-09 16:45:00 Test Item Value Reference Range Interpretation Comments Segs-Bands # (test code = Segs-Bands #) 4.8 1.5-8.1 [facility] HospitalPodtlvdRHUIALZCMP4963-53-31 16:45:00 Test Item Value Reference Range Interpretation Comments Lymphocytes # (test code = Lymphocytes 1.6 1.0-5.5 #) [facility] HospitalNkkceilZXDXRGIJJW1790-90-08 16:45:00 Test Item Value Reference Range Interpretation Comments Basophils # (test code 0.0 See_Comment [Aut omated message] The = Basophils #) system which generated this result tra nsmitted reference range : <=0.2. The reference r denise was not used to int erpret this result as normal/abnormal . [facility] HospitalWnofknxBPVOMPLPPV0890-87-87 16:45:00 Test Item Value Reference Range Interpretation Comments INR (test code = INR) 1.01 [facility] HospitalRxababxXWFHENHVRT5258-92-82 16:45:00 Test Item Value Reference Range Interpretation Comments PROTIME (test code = PROTIME) 9.9 s 9.0-10.6 [facility] HospitalDtolqswQZNIMFYJJX4996-15-06 16:45:00 Test Item Value Reference Range Interpretation Comments aPTT (test code = aPTT) 25.0 s 23.0-28.2 [facility] HospitalKhckqrqQATFPJTHFQ6055-19-95 16:45:00 Test Item Value Reference Range Interpretation Comments WBC X 10x3 (test code = WBC X 10x3) 7.1 3.7-10.4 [facility] HospitalOsyhybiTROKBWQHCV2768-40-16 16:45:00 Test Item Value Reference Range Interpretation Comments Hct (test code = Hct) 42.8 36.0-48.0 [facility] HospitalMwfkkklVAIYDSMSSA9925-99-22 16:45:00 Test Item Value Reference Range Interpretation Comments RBC X 10x6 (test code = RBC X 10x6) 4.77 4.20-5.40 [facility] HospitalKcfmrdtFGIHEZWPJU7686-76-11 16:45:00 Test Item Value Reference Range Interpretation Comments Hgb (test code = Hgb) 14.5 12.0-16.0 [facility] HospitalPyucpghCSYFTKEZFP6541-45-88 16:45:00 Test Item Value Reference Range Interpretation Comments RDW (test code = RDW) 13.0 11.5-14.5 [facility] HospitalAzsmxjkTYCFKAKNAC4486-37-73 16:45:00 Test Item Value Reference Range Interpretation Comments MCH (test code = MCH) 30.4 pg 27.0-31.0 [facility] HospitalWtknimpHAQUFTBVCW5604-79-38 16:45:00 Test Item Value Reference Range Interpretation Comments MCHC (test code = MCHC) 33.9 32.0-36.0 [facility] HospitalEqsxlfeHZMACZTUDV7366-40-73 16:45:00 Test Item Value Reference Range Interpretation Comments MCV (test code = MCV) 89.7 80.0-98.0 [facility] HospitalTjwuuhsPXXERITVKW6920-93-30 16:45:00 Test Item Value Reference Range Interpretation Comments MPV (test code = MPV) 10.0 7.4-10.4 [facility] HospitalVzodeikDPBZQEKGZX8450-80-67 16:45:00 Test Item Value Reference Range Interpretation Comments Platelet (test code = Platelet) 245 133-450 [facility]OcjgrtyTOTVWIQRNX7820-79-18 16:45:00 Test Item Value Reference Range Interpretation Comments HIV 1/2 Ab (test code Negative *NA*(03/05/15 = HIV 1/2 Ab) 11:45 AM) [facility]FmipaezQYYJCOEDOM9091-59-56 16:45:00 Test Item Value Reference Range Interpretation Comments Hep Bs Ag (test code Negative *NA*(03/05/15 = Hep Bs Ag) 11:45 AM) [facility] HospitalHxhdbgbJPQZSQFZDJ0543-34-73 16:45:00 Test Item Value Reference Range Interpretation Comments Hep C Ab (test code = Negative *NA*(03/05/15 Hep C Ab) 11:45 AM) [facility] CenterCrowdFeed FRVQE5768-32-55 16:45:00 Test Item Value Reference Range Interpretation Comments eGFR (test code = eGFR) 69 [facility] ERPVO9510-77-03 16:45:00 Test Item Value Reference Range Interpretation Comments Alk Phos (test code = Alk Phos) 65 39-136 [facility]2015-09-02 16:45:00 Test Item Value Reference Range Interpretation Comments ALANINE AMINOTRANSFERASE 20 See_Comment [A utomated message] (test code = ALANINE The sys tem which AMINOTRANSFERASE) generated this result transmitted ref erence range: <=65. Th e reference range was not used to int erpret this result as normal/abnormal . [facility]2015-09-02 16:45:00 Test Item Value Reference Range Interpretation Comments ASPARTATE TRANSAMINASE 25 See_Comment [Aut omated message] (test code = ASPARTATE The s ystem which TRANSAMINASE) generated this result transmitted ref erence range: <=37. Th e reference range was not used to interpr et this result as normal/abnormal . [facility]2015-09-02 16:45:00 Test Item Value Reference Range Interpretation Comments A/G Ratio (test code = A/G Ratio) 1.7 0.7-1.6 [facility]2015-09-02 16:45:00 Test Item Value Reference Range Interpretation Comments Bili Total (test code = Bili Total) 0.7 0.2-1.3 [facility]2015-09-02 16:45:00 Test Item Value Reference Range Interpretation Comments Sodium Lvl (test code = Sodium Lvl) 141 135-145 [facility]2015-09-02 16:45:00 Test Item Value Reference Range Interpretation Comments Creatinine Lvl (test code = Creatinine 0.9 0.5-1.4 Lvl) [facility]2015-09-02 16:45:00 Test Item Value Reference Range Interpretation Comments Potassium Lvl (test code = Potassium 3.8 3.5-5.1 Lvl) [facility]2015-09-02 16:45:00 Test Item Value Reference Range Interpretation Comments Glucose Lvl (test code = Glucose Lvl) 85 70-99 [facility]2015-09-02 16:45:00 Test Item Value Reference Range Interpretation Comments BUN (test code = BUN) 17 7-22 [facility]2015-09-02 16:45:00 Test Item Value Reference Range Interpretation Comments Calcium Lvl (test code = Calcium Lvl) 9.5 8.5-10.5 [facility]2015-09-02 16:45:00 Test Item Value Reference Range Interpretation Comments B/C Ratio (test code = B/C Ratio) 19 6-25 [facility]2015-09-02 16:45:00 Test Item Value Reference Range Interpretation Comments Total Protein (test code = Total 6.9 6.4-8.4 Protein) [facility]2015-09-02 16:45:00 Test Item Value Reference Range Interpretation Comments Chloride Lvl (test code = Chloride Lvl) 100 95-109 [facility]2015-09-02 16:45:00 Test Item Value Reference Range Interpretation Comments CO2 (test code = CO2) 31 24-32 [facility]2015-09-02 16:45:00 Test Item Value Reference Range Interpretation Comments AGAP (test code = AGAP) 13.8 10.0-20.0 [facility]2015-09-02 16:45:00 Test Item Value Reference Range Interpretation Comments Albumin Lvl (test code = Albumin Lvl) 4.3 3.5-5.0 [facility]2015-09-02 16:45:00 Test Item Value Reference Range Interpretation Comments Globulin (test code = Globulin) 2.6 2.0-4.0 [facility]NkwqbdiGQRESTBKTS0945-[facility] 16:45:00 Test Item Value Reference Range Interpretation Comments Monocytes (test code = Monocytes) 8.2 2.0-12.0 [facility] HospitalBdwfbhaCWYPRURZEH5233-10-13 16:45:00 Test Item Value Reference Range Interpretation Comments Eosinophils (test code = 1.7 See_Comment [A utomated message] The Eosinophils) system which ge nerated this result tra nsmitted reference range : <=4.0. The reference r denise was not used to int erpret this result as normal/abnormal . [facility] HospitalRjagakdDOXITUVXTH0724-57-55 16:45:00 Test Item Value Reference Range Interpretation Comments Eosinophils # (test code 0.1 See_Comment [A utomated message] The = Eosinophils #) system whic h generated this result tra nsmitted reference range : <=0.5. The reference r denise was not used to int erpret this result as normal/abnormal . [facility] HospitalKurdpkoMXGTFHVPEB8993-91-58 16:45:00 Test Item Value Reference Range Interpretation Comments Monocytes # (test code 0.6 See_Comment [Aut omated message] The = Monocytes #) system which generated this result tra nsmitted reference range : <=0.8. The reference r denise was not used to int erpret this result as normal/abnormal . [facility] HospitalDqyddvdAVOAKGHSKT9209-53-87 16:45:00 Test Item Value Reference Range Interpretation Comments Segs (test code = Segs) 67.5 45.0-75.0 [facility] HospitalSgbqipfLBBMQUYPUX1238-61-39 16:45:00 Test Item Value Reference Range Interpretation Comments Lymphocytes (test code = Lymphocytes) 22.2 20.0-40.0 [facility] HospitalYylaewrGHAYYTJELY2830-98-49 16:45:00 Test Item Value Reference Range Interpretation Comments Basophils (test code = 0.4 See_Comment [Aut omated message] The Basophils) system which ge nerated this result tra nsmitted reference range : <=1.0. The reference r denise was not used to int erpret this result as normal/abnormal . [facility] HospitalWwdeuteFDBXSKWQIF3289-52-82 16:45:00 Test Item Value Reference Range Interpretation Comments Segs-Bands # (test code = Segs-Bands #) 4.8 1.5-8.1 [facility] HospitalIoetjmfBJBEBUGKKK5669-67-99 16:45:00 Test Item Value Reference Range Interpretation Comments Lymphocytes # (test code = Lymphocytes 1.6 1.0-5.5 #) [facility] HospitalFxfnivfHAFOSUJYYQ4159-76-81 16:45:00 Test Item Value Reference Range Interpretation Comments Basophils # (test code 0.0 See_Comment [Aut omated message] The = Basophils #) system which generated this result tra nsmitted reference range : <=0.2. The reference r denise was not used to int erpret this result as normal/abnormal . [facility] HospitalRvgnajiKZULTYCKEN1978-66-95 16:45:00 Test Item Value Reference Range Interpretation Comments INR (test code = INR) 1.01 [facility] HospitalGmgcilcBYYFSBNJDU4443-25-42 16:45:00 Test Item Value Reference Range Interpretation Comments PROTIME (test code = PROTIME) 9.9 s 9.0-10.6 [facility] HospitalDoqfictQBCOWHZBJD0925-59-13 16:45:00 Test Item Value Reference Range Interpretation Comments aPTT (test code = aPTT) 25.0 s 23.0-28.2 [facility] HospitalGapmbooDKVCSSIQPP0815-00-10 16:45:00 Test Item Value Reference Range Interpretation Comments WBC X 10x3 (test code = WBC X 10x3) 7.1 3.7-10.4 [facility] HospitalJwuosmhBDYLLPKHPV2045-53-45 16:45:00 Test Item Value Reference Range Interpretation Comments Hct (test code = Hct) 42.8 36.0-48.0 [facility] HospitalKytzksiDMNEAOALSV5040-85-53 16:45:00 Test Item Value Reference Range Interpretation Comments RBC X 10x6 (test code = RBC X 10x6) 4.77 4.20-5.40 [facility] HospitalLfuzuppNDBEDFOVAO5748-09-59 16:45:00 Test Item Value Reference Range Interpretation Comments Hgb (test code = Hgb) 14.5 12.0-16.0 [facility] HospitalKqppolvRYHNHDIBOW3441-76-56 16:45:00 Test Item Value Reference Range Interpretation Comments RDW (test code = RDW) 13.0 11.5-14.5 [facility] HospitalRobbfvwIHWFCPINVY5014-40-05 16:45:00 Test Item Value Reference Range Interpretation Comments MCH (test code = MCH) 30.4 pg 27.0-31.0 [facility] HospitalLzlhgzeOUWQCXJOHJ1378-30-73 16:45:00 Test Item Value Reference Range Interpretation Comments MCHC (test code = MCHC) 33.9 32.0-36.0 [facility] HospitalKdkttjiSXOBNOWRYM5638-31-23 16:45:00 Test Item Value Reference Range Interpretation Comments MCV (test code = MCV) 89.7 80.0-98.0 [facility] HospitalHhszzptKCITYUWNCG2905-74-21 16:45:00 Test Item Value Reference Range Interpretation Comments MPV (test code = MPV) 10.0 7.4-10.4 [facility] HospitalMszenjbDVNANQTDXK3969-63-16 16:45:00 Test Item Value Reference Range Interpretation Comments Platelet (test code = Platelet) 245 133-450 [facility]HrzojfpURJEHBFSBG7092-18-12 16:45:00 Test Item Value Reference Range Interpretation Comments HIV 1/2 Ab (test code Negative *NA*(03/05/15 = HIV 1/2 Ab) 11:45 AM) [facility] HospitalIxymjmnFZGEAKGPCD8005-48-47 16:45:00 Test Item Value Reference Range Interpretation Comments Hep Bs Ag (test code Negative *NA*(03/05/15 = Hep Bs Ag) 11:45 AM) [facility] HospitalZcwtpwaBKYDZAHRAI3313-93-87 16:45:00 Test Item Value Reference Range Interpretation Comments Hep C Ab (test code = Negative *NA*(03/05/15 Hep C Ab) 11:45 AM) [facility]2015-09-02 16:45:00 Test Item Value Reference Range Interpretation Comments eGFR (test code = eGFR) 69 [facility]2015-09-02 16:45:00 Test Item Value Reference Range Interpretation Comments Alk Phos (test code = Alk Phos) 65 39-136 [facility]2015-09-02 16:45:00 Test Item Value Reference Range Interpretation Comments ALANINE AMINOTRANSFERASE 20 See_Comment [A utomated message] (test code = ALANINE The sys tem which AMINOTRANSFERASE) generated this result transmitted ref erence range: <=65. Th e reference range was not used to int erpret this result as normal/abnormal . [facility]2015-09-02 16:45:00 Test Item Value Reference Range Interpretation Comments ASPARTATE TRANSAMINASE 25 See_Comment [Aut omated message] (test code = ASPARTATE The s ystem which TRANSAMINASE) generated this result transmitted ref erence range: <=37. Th e reference range was not used to interpr et this result as normal/abnormal . [facility]2015-09-02 16:45:00 Test Item Value Reference Range Interpretation Comments A/G Ratio (test code = A/G Ratio) 1.7 0.7-1.6 [facility]2015-09-02 16:45:00 Test Item Value Reference Range Interpretation Comments Bili Total (test code = Bili Total) 0.7 0.2-1.3 [facility]2015-09-02 16:45:00 Test Item Value Reference Range Interpretation Comments Sodium Lvl (test code = Sodium Lvl) 141 135-145 [facility]2015-09-02 16:45:00 Test Item Value Reference Range Interpretation Comments Creatinine Lvl (test code = Creatinine 0.9 0.5-1.4 Lvl) [facility]2015-09-02 16:45:00 Test Item Value Reference Range Interpretation Comments Potassium Lvl (test code = Potassium 3.8 3.5-5.1 Lvl) [facility]2015-09-02 16:45:00 Test Item Value Reference Range Interpretation Comments Glucose Lvl (test code = Glucose Lvl) 85 70-99 [facility]2015-09-02 16:45:00 Test Item Value Reference Range Interpretation Comments BUN (test code = BUN) 17 7-22 [facility]2015-09-02 16:45:00 Test Item Value Reference Range Interpretation Comments Calcium Lvl (test code = Calcium Lvl) 9.5 8.5-10.5 [facility]2015-09-02 16:45:00 Test Item Value Reference Range Interpretation Comments B/C Ratio (test code = B/C Ratio) 19 6-25 [facility]2015-09-02 16:45:00 Test Item Value Reference Range Interpretation Comments Total Protein (test code = Total 6.9 6.4-8.4 Protein) [facility]2015-09-02 16:45:00 Test Item Value Reference Range Interpretation Comments Chloride Lvl (test code = Chloride Lvl) 100 95-109 [facility]2015-09-02 16:45:00 Test Item Value Reference Range Interpretation Comments CO2 (test code = CO2) 31 24-32 [facility]2015-09-02 16:45:00 Test Item Value Reference Range Interpretation Comments AGAP (test code = AGAP) 13.8 10.0-20.0 [facility]2015-09-02 16:45:00 Test Item Value Reference Range Interpretation Comments Albumin Lvl (test code = Albumin Lvl) 4.3 3.5-5.0 [facility]2015-09-02 16:45:00 Test Item Value Reference Range Interpretation Comments Globulin (test code = Globulin) 2.6 2.0-4.0 [facility] HospitalZzbpwboPKIXUGOLKZ0761-17-44 16:45:00 Test Item Value Reference Range Interpretation Comments Monocytes (test code = Monocytes) 8.2 2.0-12.0 [facility] HospitalMcsyqaoRZSNMTMNZF2288-57-73 16:45:00 Test Item Value Reference Range Interpretation Comments Eosinophils (test code = 1.7 See_Comment [A utomated message] The Eosinophils) system which ge nerated this result tra nsmitted reference range : <=4.0. The reference r denise was not used to int erpret this result as normal/abnormal . [facility] HospitalYlvbnzwWZHCGLBZJT1479-55-85 16:45:00 Test Item Value Reference Range Interpretation Comments Eosinophils # (test code 0.1 See_Comment [A utomated message] The = Eosinophils #) system whic h generated this result tra nsmitted reference range : <=0.5. The reference r denise was not used to int erpret this result as normal/abnormal . [facility] HospitalKshxlqzMIKRCNEFMK8918-12-64 16:45:00 Test Item Value Reference Range Interpretation Comments Monocytes # (test code 0.6 See_Comment [Aut omated message] The = Monocytes #) system which generated this result tra nsmitted reference range : <=0.8. The reference r denise was not used to int erpret this result as normal/abnormal . [facility] HospitalAvelqjhVXXQIEAPCC3838-57-46 16:45:00 Test Item Value Reference Range Interpretation Comments Segs (test code = Segs) 67.5 45.0-75.0 [facility] HospitalYkvhtdvIMCRQNBXLO1690-22-73 16:45:00 Test Item Value Reference Range Interpretation Comments Lymphocytes (test code = Lymphocytes) 22.2 20.0-40.0 [facility] HospitalVgkmqaaXBNNXEOSVY1179-71-25 16:45:00 Test Item Value Reference Range Interpretation Comments Basophils (test code = 0.4 See_Comment [Aut omated message] The Basophils) system which ge nerated this result tra nsmitted reference range : <=1.0. The reference r denise was not used to int erpret this result as normal/abnormal . [facility] HospitalKbiqxsaELEWWBOUOS6757-99-38 16:45:00 Test Item Value Reference Range Interpretation Comments Segs-Bands # (test code = Segs-Bands #) 4.8 1.5-8.1 [facility] HospitalCafhrfoNVJSCVKKPU3589-33-10 16:45:00 Test Item Value Reference Range Interpretation Comments Lymphocytes # (test code = Lymphocytes 1.6 1.0-5.5 #) [facility] HospitalHvrrubjJGUANEIDLP0717-22-81 16:45:00 Test Item Value Reference Range Interpretation Comments Basophils # (test code 0.0 See_Comment [Aut omated message] The = Basophils #) system which generated this result tra nsmitted reference range : <=0.2. The reference r denise was not used to int erpret this result as normal/abnormal . [facility] HospitalVbisrndVSUKEVZMZD8709-03-23 16:45:00 Test Item Value Reference Range Interpretation Comments INR (test code = INR) 1.01 [facility] HospitalGvqsiziHFOMJMDLAN8546-83-33 16:45:00 Test Item Value Reference Range Interpretation Comments PROTIME (test code = PROTIME) 9.9 s 9.0-10.6 [facility] HospitalAgxpjheOCYVWVSEHL0812-53-45 16:45:00 Test Item Value Reference Range Interpretation Comments aPTT (test code = aPTT) 25.0 s 23.0-28.2 [facility] HospitalEsuyfeaPIDZNWVCZF8409-74-34 16:45:00 Test Item Value Reference Range Interpretation Comments WBC X 10x3 (test code = WBC X 10x3) 7.1 3.7-10.4 [facility] HospitalTyyehhsCKANYUZURB8856-49-07 16:45:00 Test Item Value Reference Range Interpretation Comments Hct (test code = Hct) 42.8 36.0-48.0 [facility] HospitalZhwcuahQYOSVKGTPC7432-57-26 16:45:00 Test Item Value Reference Range Interpretation Comments RBC X 10x6 (test code = RBC X 10x6) 4.77 4.20-5.40 [facility] HospitalYcmsvmpFKNFESSFXI3487-89-22 16:45:00 Test Item Value Reference Range Interpretation Comments Hgb (test code = Hgb) 14.5 12.0-16.0 [facility] HospitalAunnrasTCLIODNKJN1748-70-89 16:45:00 Test Item Value Reference Range Interpretation Comments RDW (test code = RDW) 13.0 11.5-14.5 [facility] HospitalQgmeazhMFDRGWWUXD4868-22-74 16:45:00 Test Item Value Reference Range Interpretation Comments MCH (test code = MCH) 30.4 pg 27.0-31.0 [facility] HospitalDmivxwdLQVQISAATX8878-98-21 16:45:00 Test Item Value Reference Range Interpretation Comments MCHC (test code = MCHC) 33.9 32.0-36.0 [facility] HospitalGuaberaXTXYBUEKED7719-55-77 16:45:00 Test Item Value Reference Range Interpretation Comments MCV (test code = MCV) 89.7 80.0-98.0 [facility] HospitalWrkrmexBTSYMXKBGA7815-95-29 16:45:00 Test Item Value Reference Range Interpretation Comments MPV (test code = MPV) 10.0 7.4-10.4 [facility] HospitalPoshbbzULOHQCCGNH2467-47-47 16:45:00 Test Item Value Reference Range Interpretation Comments Platelet (test code = Platelet) 245 133-450 [facility] HospitalTgsalpxGKWUGZLKQE1198-92-83 16:45:00 Test Item Value Reference Range Interpretation Comments HIV 1/2 Ab (test code Negative *NA*(03/05/15 = HIV 1/2 Ab) 11:45 AM) [facility] HospitalFkbsxhhJKULLBNLQS2212-40-27 16:45:00 Test Item Value Reference Range Interpretation Comments Hep Bs Ag (test code Negative *NA*(03/05/15 = Hep Bs Ag) 11:45 AM) [facility] HospitalLhndocvLLIFYHQLEO1046-79-70 16:45:00 Test Item Value Reference Range Interpretation Comments Hep C Ab (test code = Negative *NA*(03/05/15 Hep C Ab) 11:45 AM) [facility]2015-09-02 16:45:00 Test Item Value Reference Range Interpretation Comments eGFR (test code = eGFR) 69 [facility]2015-09-02 16:45:00 Test Item Value Reference Range Interpretation Comments Alk Phos (test code = Alk Phos) 65 39-136 [facility]2015-09-02 16:45:00 Test Item Value Reference Range Interpretation Comments ALANINE AMINOTRANSFERASE 20 See_Comment [A utomated message] (test code = ALANINE The sys tem which AMINOTRANSFERASE) generated this result transmitted ref erence range: <=65. Th e reference range was not used to int erpret this result as normal/abnormal . [facility]2015-09-02 16:45:00 Test Item Value Reference Range Interpretation Comments ASPARTATE TRANSAMINASE 25 See_Comment [Aut omated message] (test code = ASPARTATE The s ystem which TRANSAMINASE) generated this result transmitted ref erence range: <=37. Th e reference range was not used to interpr et this result as normal/abnormal . [facility]2015-09-02 16:45:00 Test Item Value Reference Range Interpretation Comments A/G Ratio (test code = A/G Ratio) 1.7 0.7-1.6 [facility]2015-09-02 16:45:00 Test Item Value Reference Range Interpretation Comments Bili Total (test code = Bili Total) 0.7 0.2-1.3 [facility]2015-09-02 16:45:00 Test Item Value Reference Range Interpretation Comments Sodium Lvl (test code = Sodium Lvl) 141 135-145 [facility]2015-09-02 16:45:00 Test Item Value Reference Range Interpretation Comments Creatinine Lvl (test code = Creatinine 0.9 0.5-1.4 Lvl) [facility]2015-09-02 16:45:00 Test Item Value Reference Range Interpretation Comments Potassium Lvl (test code = Potassium 3.8 3.5-5.1 Lvl) [facility]2015-09-02 16:45:00 Test Item Value Reference Range Interpretation Comments Glucose Lvl (test code = Glucose Lvl) 85 70-99 [facility]2015-09-02 16:45:00 Test Item Value Reference Range Interpretation Comments BUN (test code = BUN) 17 7-22 [facility]2015-09-02 16:45:00 Test Item Value Reference Range Interpretation Comments Calcium Lvl (test code = Calcium Lvl) 9.5 8.5-10.5 [facility]2015-09-02 16:45:00 Test Item Value Reference Range Interpretation Comments B/C Ratio (test code = B/C Ratio) 19 6-25 [facility]2015-09-02 16:45:00 Test Item Value Reference Range Interpretation Comments Total Protein (test code = Total 6.9 6.4-8.4 Protein) [facility]2015-09-02 16:45:00 Test Item Value Reference Range Interpretation Comments Chloride Lvl (test code = Chloride Lvl) 100 95-109 [facility]2015-09-02 16:45:00 Test Item Value Reference Range Interpretation Comments CO2 (test code = CO2) 31 24-32 [facility]2015-09-02 16:45:00 Test Item Value Reference Range Interpretation Comments AGAP (test code = AGAP) 13.8 10.0-20.0 [facility]2015-09-02 16:45:00 Test Item Value Reference Range Interpretation Comments Albumin Lvl (test code = Albumin Lvl) 4.3 3.5-5.0 [facility]2015-09-02 16:45:00 Test Item Value Reference Range Interpretation Comments Globulin (test code = Globulin) 2.6 2.0-4.0 [facility] HospitalZsgrulrZSAIVDSYEN1741-08-13 16:45:00 Test Item Value Reference Range Interpretation Comments Monocytes (test code = Monocytes) 8.2 2.0-12.0 [facility] HospitalHwsehfxQRVEUELPJZ4850-90-85 16:45:00 Test Item Value Reference Range Interpretation Comments Eosinophils (test code = 1.7 See_Comment [A utomated message] The Eosinophils) system which ge nerated this result tra nsmitted reference range : <=4.0. The reference r denise was not used to int erpret this result as normal/abnormal . [facility] HospitalBxbbawzRKBDYEQSRP8807-05-49 16:45:00 Test Item Value Reference Range Interpretation Comments Eosinophils # (test code 0.1 See_Comment [A utomated message] The = Eosinophils #) system whic h generated this result tra nsmitted reference range : <=0.5. The reference r denise was not used to int erpret this result as normal/abnormal . [facility] HospitalMfoxxqoYYNLPVQLKF5153-29-10 16:45:00 Test Item Value Reference Range Interpretation Comments Monocytes # (test code 0.6 See_Comment [Aut omated message] The = Monocytes #) system which generated this result tra nsmitted reference range : <=0.8. The reference r denise was not used to int erpret this result as normal/abnormal . [facility] HospitalZfduihxDYHFGYUSNL8084-69-18 16:45:00 Test Item Value Reference Range Interpretation Comments Segs (test code = Segs) 67.5 45.0-75.0 [facility] HospitalPyqvjkwNMVXTZJLNH8722-58-32 16:45:00 Test Item Value Reference Range Interpretation Comments Lymphocytes (test code = Lymphocytes) 22.2 20.0-40.0 [facility] HospitalPuttkatBLUTBLTVBO6830-10-25 16:45:00 Test Item Value Reference Range Interpretation Comments Basophils (test code = 0.4 See_Comment [Aut omated message] The Basophils) system which ge nerated this result tra nsmitted reference range : <=1.0. The reference r denise was not used to int erpret this result as normal/abnormal . [facility] HospitalXtglidtEGEDTKFWPJ4258-63-46 16:45:00 Test Item Value Reference Range Interpretation Comments Segs-Bands # (test code = Segs-Bands #) 4.8 1.5-8.1 [facility] HospitalNpexjaaUMVTCQCFQG0131-11-57 16:45:00 Test Item Value Reference Range Interpretation Comments Lymphocytes # (test code = Lymphocytes 1.6 1.0-5.5 #) [facility] HospitalNtkfntqWJBCSHNSTJ8590-97-68 16:45:00 Test Item Value Reference Range Interpretation Comments Basophils # (test code 0.0 See_Comment [Aut omated message] The = Basophils #) system which generated this result tra nsmitted reference range : <=0.2. The reference r denise was not used to int erpret this result as normal/abnormal . [facility] HospitalPidcdlhCSKHLNSNYR9824-54-44 16:45:00 Test Item Value Reference Range Interpretation Comments INR (test code = INR) 1.01 [facility] HospitalHqfqfmuWZPFDTTIVI2602-09-71 16:45:00 Test Item Value Reference Range Interpretation Comments PROTIME (test code = PROTIME) 9.9 s 9.0-10.6 [facility] HospitalWxdwropHEZALRWWAQ8199-53-27 16:45:00 Test Item Value Reference Range Interpretation Comments aPTT (test code = aPTT) 25.0 s 23.0-28.2 [facility] HospitalQssvwzaAZWVYYHDCH0779-01-60 16:45:00 Test Item Value Reference Range Interpretation Comments WBC X 10x3 (test code = WBC X 10x3) 7.1 3.7-10.4 [facility] HospitalMbfqoxeHXVMRCOOHZ3098-07-17 16:45:00 Test Item Value Reference Range Interpretation Comments Hct (test code = Hct) 42.8 36.0-48.0 [facility] HospitalPuhsrfxKNLQVBMFCH3559-32-67 16:45:00 Test Item Value Reference Range Interpretation Comments RBC X 10x6 (test code = RBC X 10x6) 4.77 4.20-5.40 [facility] HospitalYjrtvnfYTPMCBPTIF5111-53-47 16:45:00 Test Item Value Reference Range Interpretation Comments Hgb (test code = Hgb) 14.5 12.0-16.0 [facility] HospitalUorxtovWRIFFNIMGU1664-11-62 16:45:00 Test Item Value Reference Range Interpretation Comments RDW (test code = RDW) 13.0 11.5-14.5 [facility] HospitalAjikikkEWMKXIRDQF5690-18-29 16:45:00 Test Item Value Reference Range Interpretation Comments MCH (test code = MCH) 30.4 pg 27.0-31.0 [facility] HospitalZlgequoGKBROHPZHL5254-49-72 16:45:00 Test Item Value Reference Range Interpretation Comments MCHC (test code = MCHC) 33.9 32.0-36.0 [facility] Hospit[id number] 16:45:00 Test Item Value Reference Range Interpretation Comments MCV (test code = MCV) 89.7 80.0-98.0 [facility]FhtsxfqCCPYEJWZTM7431-66-32 16:45:00 Test Item Value Reference Range Interpretation Comments MPV (test code = MPV) 10.0 7.4-10.4 [facility] HospitalNyzrpwzYQJPITOVSS5030-36-76 16:45:00 Test Item Value Reference Range Interpretation Comments Platelet (test code = Platelet) 245 133-450 [facility]CqstdwkEFQGJFKNZD0949-09-31 16:45:00 Test Item Value Reference Range Interpretation Comments HIV 1/2 Ab (test code Negative *NA*(03/05/15 = HIV 1/2 Ab) 11:45 AM) [facility]XkgwsxrRJNJEBYOUL7870-32-11 16:45:00 Test Item Value Reference Range Interpretation Comments Hep Bs Ag (test code Negative *NA*(03/05/15 = Hep Bs Ag) 11:45 AM) [facility] CenterYmvielyOLVPJBSGQE3256-41-56 16:45:00 Test Item Value Reference Range Interpretation Comments Hep C Ab (test code = Negative *NA*(03/05/15 Hep C Ab) 11:45 AM) [facility] CenterCrowdFeed [id number] 16:45:00 Test Item Value Reference Range Interpretation Comments eGFR (test code = eGFR) 69 [facility]Ver[facility] [id number] 16:45:00 Test Item Value Reference Range Interpretation Comments Alk Phos (test code = Alk Phos) 65 39-136 [facility] Center[facility] [id number] 16:45:00 Test Item Value Reference Range Interpretation Comments ALANINE AMINOTRANSFERASE 20 See_Comment [A utomated message] (test code = ALANINE The sys tem which AMINOTRANSFERASE) generated this result transmitted ref erence range: <=65. Th e reference range was not used to int erpret this result as normal/abnormal . [facility] Center[facility] [id number] 16:45:00 Test Item Value Reference Range Interpretation Comments ASPARTATE TRANSAMINASE 25 See_Comment [Aut omated message] (test code = ASPARTATE The s ystem which TRANSAMINASE) generated this result transmitted ref erence range: <=37. Th e reference range was not used to interpr et this result as normal/abnormal . [facility]2015-09-02 16:45:00 Test Item Value Reference Range Interpretation Comments A/G Ratio (test code = A/G Ratio) 1.7 0.7-1.6 [facility]2015-09-02 16:45:00 Test Item Value Reference Range Interpretation Comments Bili Total (test code = Bili Total) 0.7 0.2-1.3 [facility]2015-09-02 16:45:00 Test Item Value Reference Range Interpretation Comments Sodium Lvl (test code = Sodium Lvl) 141 135-145 [facility]2015-09-02 16:45:00 Test Item Value Reference Range Interpretation Comments Creatinine Lvl (test code = Creatinine 0.9 0.5-1.4 Lvl) [facility]2015-09-02 16:45:00 Test Item Value Reference Range Interpretation Comments Potassium Lvl (test code = Potassium 3.8 3.5-5.1 Lvl) [facility] CenterSkoodatSWAIN COMMUN[id number] 16:45:00 Test Item Value Reference Range Interpretation Comments Glucose Lvl (test code = Glucose Lvl) 85 70-99 [facility]2015-09-02 16:45:00 Test Item Value Reference Range Interpretation Comments BUN (test code = BUN) 17 7-22 [facility]2015-09-02 16:45:00 Test Item Value Reference Range Interpretation Comments Calcium Lvl (test code = Calcium Lvl) 9.5 8.5-10.5 [facility]2015-09-02 16:45:00 Test Item Value Reference Range Interpretation Comments B/C Ratio (test code = B/C Ratio) 19 6-25 [facility]2015-09-02 16:45:00 Test Item Value Reference Range Interpretation Comments Total Protein (test code = Total 6.9 6.4-8.4 Protein) [facility]2015-09-02 16:45:00 Test Item Value Reference Range Interpretation Comments Chloride Lvl (test code = Chloride Lvl) 100 95-109 [facility]2015-09-02 16:45:00 Test Item Value Reference Range Interpretation Comments CO2 (test code = CO2) 31 24-32 [facility]2015-09-02 16:45:00 Test Item Value Reference Range Interpretation Comments AGAP (test code = AGAP) 13.8 10.0-20.0 [facility]2015-09-02 16:45:00 Test Item Value Reference Range Interpretation Comments Albumin Lvl (test code = Albumin Lvl) 4.3 3.5-5.0 [facility]2015-09-02 16:45:00 Test Item Value Reference Range Interpretation Comments Globulin (test code = Globulin) 2.6 2.0-4.0 [facility] HospitalKayfildZHJEMCSVMN7652-61-28 16:45:00 Test Item Value Reference Range Interpretation Comments Monocytes (test code = Monocytes) 8.2 2.0-12.0 [facility] HospitalVjstgbmUVPIFQFTBD4790-50-98 16:45:00 Test Item Value Reference Range Interpretation Comments Eosinophils (test code = 1.7 See_Comment [A utomated message] The Eosinophils) system which ge nerated this result tra nsmitted reference range : <=4.0. The reference r denise was not used to int erpret this result as normal/abnormal . [facility] HospitalCgznydxEDFVPCVFNW3191-79-12 16:45:00 Test Item Value Reference Range Interpretation Comments Eosinophils # (test code 0.1 See_Comment [A utomated message] The = Eosinophils #) system ic h generated this result tra nsmitted reference range : <=0.5. The reference r denise was not used to int erpret this result as normal/abnormal . [facility] HospitalXqdvvvvCCZDQQXXTU4005-69-68 16:45:00 Test Item Value Reference Range Interpretation Comments Monocytes # (test code 0.6 See_Comment [Aut omated message] The = Monocytes #) system which generated this result tra nsmitted reference range : <=0.8. The reference r denise was not used to int erpret this result as normal/abnormal . [facility] HospitalWgxjidiDJYNIDLVQX4410-91-52 16:45:00 Test Item Value Reference Range Interpretation Comments Segs (test code = Segs) 67.5 45.0-75.0 [facility] HospitalNzdovqfJAZORHEJNZ1761-98-65 16:45:00 Test Item Value Reference Range Interpretation Comments Lymphocytes (test code = Lymphocytes) 22.2 20.0-40.0 [facility] HospitalBqdrtnqCZXGEJYCKH0250-08-26 16:45:00 Test Item Value Reference Range Interpretation Comments Basophils (test code = 0.4 See_Comment [Aut omated message] The Basophils) system which ge nerated this result tra nsmitted reference range : <=1.0. The reference r denise was not used to int erpret this result as normal/abnormal . [facility] HospitalDutncfgDQVKVNUKPW4237-70-04 16:45:00 Test Item Value Reference Range Interpretation Comments Segs-Bands # (test code = Segs-Bands #) 4.8 1.5-8.1 [facility] HospitalRnqngkyXOZHJCMUOK9005-27-69 16:45:00 Test Item Value Reference Range Interpretation Comments Lymphocytes # (test code = Lymphocytes 1.6 1.0-5.5 #) [facility] HospitalVpetvdgXCUESTAJXS8835-43-94 16:45:00 Test Item Value Reference Range Interpretation Comments Basophils # (test code 0.0 See_Comment [Aut omated message] The = Basophils #) system which generated this result tra nsmitted reference range : <=0.2. The reference r denise was not used to int erpret this result as normal/abnormal . [facility] HospitalLzxzkydEDTCUMLWDY0460-08-36 16:45:00 Test Item Value Reference Range Interpretation Comments INR (test code = INR) 1.01 [facility] HospitalOghldewNWTTDEWITE6302-00-14 16:45:00 Test Item Value Reference Range Interpretation Comments PROTIME (test code = PROTIME) 9.9 s 9.0-10.6 [facility] HospitalQxuhkebKSAXIMNKET1264-28-81 16:45:00 Test Item Value Reference Range Interpretation Comments aPTT (test code = aPTT) 25.0 s 23.0-28.2 [facility] HospitalBgugfcsRNHGFSYPUB3948-53-51 16:45:00 Test Item Value Reference Range Interpretation Comments WBC X 10x3 (test code = WBC X 10x3) 7.1 3.7-10.4 [facility] HospitalFkdasxfAIUVVMFGWY6947-92-75 16:45:00 Test Item Value Reference Range Interpretation Comments Hct (test code = Hct) 42.8 36.0-48.0 [facility] HospitalXybngfeCEGYMMDFPC6018-55-25 16:45:00 Test Item Value Reference Range Interpretation Comments RBC X 10x6 (test code = RBC X 10x6) 4.77 4.20-5.40 [facility] HospitalSqiqwpyFNYCYVWAWS2261-17-45 16:45:00 Test Item Value Reference Range Interpretation Comments Hgb (test code = Hgb) 14.5 12.0-16.0 [facility] HospitalQdqltzcSNMMOFDDCU4480-01-61 16:45:00 Test Item Value Reference Range Interpretation Comments RDW (test code = RDW) 13.0 11.5-14.5 [facility] HospitalDoqllvtMBDAWQQOJT7097-43-08 16:45:00 Test Item Value Reference Range Interpretation Comments MCH (test code = MCH) 30.4 pg 27.0-31.0 [facility] HospitalEipfyjbEJFXSMYCMX2696-20-18 16:45:00 Test Item Value Reference Range Interpretation Comments MCHC (test code = MCHC) 33.9 32.0-36.0 [facility] HospitalIwjyjgkLAZUNAIQLK4614-42-65 16:45:00 Test Item Value Reference Range Interpretation Comments MCV (test code = MCV) 89.7 80.0-98.0 [facility] HospitalPcyltelHHMBARGHAY4649-37-01 16:45:00 Test Item Value Reference Range Interpretation Comments MPV (test code = MPV) 10.0 7.4-10.4 [facility] HospitalWgehbvnKAXMEIDDLO0718-78-34 16:45:00 Test Item Value Reference Range Interpretation Comments Platelet (test code = Platelet) 245 133-450 [facility] HospitalPyppujmAUJNOKMNZL7226-77-01 16:45:00 Test Item Value Reference Range Interpretation Comments HIV 1/2 Ab (test code Negative *NA*(03/05/15 = HIV 1/2 Ab) 11:45 AM) [facility] HospitalGhcuyguYUECWTMYGJ5349-39-06 16:45:00 Test Item Value Reference Range Interpretation Comments Hep Bs Ag (test code Negative *NA*(03/05/15 = Hep Bs Ag) 11:45 AM) [facility] HospitalCdenxzaANPIMSGONE5176-02-38 16:45:00 Test Item Value Reference Range Interpretation Comments Hep C Ab (test code = Negative *NA*(03/05/15 Hep C Ab) 11:45 AM) [facility]2015-09-02 16:45:00 Test Item Value Reference Range Interpretation Comments eGFR (test code = eGFR) 69 [facility]2015-09-02 16:45:00 Test Item Value Reference Range Interpretation Comments Alk Phos (test code = Alk Phos) 65 39-136 [facility]2015-09-02 16:45:00 Test Item Value Reference Range Interpretation Comments ALANINE AMINOTRANSFERASE 20 See_Comment [A utomated message] (test code = ALANINE The sys tem which AMINOTRANSFERASE) generated this result transmitted ref erence range: <=65. Th e reference range was not used to int erpret this result as normal/abnormal . [facility]2015-09-02 16:45:00 Test Item Value Reference Range Interpretation Comments ASPARTATE TRANSAMINASE 25 See_Comment [Aut omated message] (test code = ASPARTATE The s ystem which TRANSAMINASE) generated this result transmitted ref erence range: <=37. Th e reference range was not used to interpr et this result as normal/abnormal . [facility]2015-09-02 16:45:00 Test Item Value Reference Range Interpretation Comments A/G Ratio (test code = A/G Ratio) 1.7 0.7-1.6 [place] [id number] 16:45:00 Test Item Value Reference Range Interpretation Comments Bili Total (test code = Bili Total) 0.7 0.2-1.3 [facility]2015-09-02 16:45:00 Test Item Value Reference Range Interpretation Comments Sodium Lvl (test code = Sodium Lvl) 141 135-145 [facility]2015-09-02 16:45:00 Test Item Value Reference Range Interpretation Comments Creatinine Lvl (test code = Creatinine 0.9 0.5-1.4 Lvl) [facility]2015-09-02 16:45:00 Test Item Value Reference Range Interpretation Comments Potassium Lvl (test code = Potassium 3.8 3.5-5.1 Lvl) [facility]2015-09-02 16:45:00 Test Item Value Reference Range Interpretation Comments Glucose Lvl (test code = Glucose Lvl) 85 70-99 [facility]2015-09-02 16:45:00 Test Item Value Reference Range Interpretation Comments BUN (test code = BUN) 17 7-22 [facility]2015-09-02 16:45:00 Test Item Value Reference Range Interpretation Comments Calcium Lvl (test code = Calcium Lvl) 9.5 8.5-10.5 [facility]2015-09-02 16:45:00 Test Item Value Reference Range Interpretation Comments B/C Ratio (test code = B/C Ratio) 19 6-25 [facility]2015-09-02 16:45:00 Test Item Value Reference Range Interpretation Comments Total Protein (test code = Total 6.9 6.4-8.4 Protein) [facility]2015-09-02 16:45:00 Test Item Value Reference Range Interpretation Comments Chloride Lvl (test code = Chloride Lvl) 100 95-109 [facility]2015-09-02 16:45:00 Test Item Value Reference Range Interpretation Comments CO2 (test code = CO2) 31 24-32 [facility]2015-09-02 16:45:00 Test Item Value Reference Range Interpretation Comments AGAP (test code = AGAP) 13.8 10.0-20.0 [facility]2015-09-02 16:45:00 Test Item Value Reference Range Interpretation Comments Albumin Lvl (test code = Albumin Lvl) 4.3 3.5-5.0 [facility]2015-09-02 16:45:00 Test Item Value Reference Range Interpretation Comments Globulin (test code = Globulin) 2.6 2.0-4.0 [facility] HospitalEvpewpbWDPAKCDQTN2057-97-85 16:45:00 Test Item Value Reference Range Interpretation Comments Monocytes (test code = Monocytes) 8.2 2.0-12.0 [facility] HospitalXvpxjbfIQZPVFUIVK5731-41-12 16:45:00 Test Item Value Reference Range Interpretation Comments Eosinophils (test code = 1.7 See_Comment [A utomated message] The Eosinophils) system which ge nerated this result tra nsmitted reference range : <=4.0. The reference r denise was not used to int erpret this result as normal/abnormal . [facility] HospitalUuqyreoUMTPWZGKRD3995-63-13 16:45:00 Test Item Value Reference Range Interpretation Comments Eosinophils # (test code 0.1 See_Comment [A utomated message] The = Eosinophils #) system whic h generated this result tra nsmitted reference range : <=0.5. The reference r denise was not used to int erpret this result as normal/abnormal . [facility] HospitalHobkubsIKUYFWCDLR9220-29-71 16:45:00 Test Item Value Reference Range Interpretation Comments Monocytes # (test code 0.6 See_Comment [Aut omated message] The = Monocytes #) system which generated this result tra nsmitted reference range : <=0.8. The reference r denise was not used to int erpret this result as normal/abnormal . [facility] HospitalRdftgtjKCSMSWKBIB5962-48-09 16:45:00 Test Item Value Reference Range Interpretation Comments Segs (test code = Segs) 67.5 45.0-75.0 [facility] HospitalXrwltbmREJKKIRPJJ4046-73-97 16:45:00 Test Item Value Reference Range Interpretation Comments Lymphocytes (test code = Lymphocytes) 22.2 20.0-40.0 [facility] HospitalEuulwdxAVTZGOGRPY4288-24-58 16:45:00 Test Item Value Reference Range Interpretation Comments Basophils (test code = 0.4 See_Comment [Aut omated message] The Basophils) system which ge nerated this result tra nsmitted reference range : <=1.0. The reference r denise was not used to int erpret this result as normal/abnormal . [facility] HospitalXjinuchEQDQYAZEDP6763-03-09 16:45:00 Test Item Value Reference Range Interpretation Comments Segs-Bands # (test code = Segs-Bands #) 4.8 1.5-8.1 [facility] HospitalUdxybkaOAYEZQVLYY9758-61-96 16:45:00 Test Item Value Reference Range Interpretation Comments Lymphocytes # (test code = Lymphocytes 1.6 1.0-5.5 #) [facility] HospitalPiamvgfPAQVHFHXMM8939-07-64 16:45:00 Test Item Value Reference Range Interpretation Comments Basophils # (test code 0.0 See_Comment [Aut omated message] The = Basophils #) system which generated this result tra nsmitted reference range : <=0.2. The reference r denise was not used to int erpret this result as normal/abnormal . [facility] HospitalEixiasrDWDLWWMNGR8857-17-74 16:45:00 Test Item Value Reference Range Interpretation Comments INR (test code = INR) 1.01 [facility] HospitalLqyifvpGLGYCPRHUI2369-17-41 16:45:00 Test Item Value Reference Range Interpretation Comments PROTIME (test code = PROTIME) 9.9 s 9.0-10.6 [facility] HospitalFihlkfgUEYGXPBTQC9514-66-10 16:45:00 Test Item Value Reference Range Interpretation Comments aPTT (test code = aPTT) 25.0 s 23.0-28.2 [facility] HospitalClzzqdmQQKKYAGDQM3081-88-45 16:45:00 Test Item Value Reference Range Interpretation Comments WBC X 10x3 (test code = WBC X 10x3) 7.1 3.7-10.4 [facility] HospitalLkbssuiSRFMCDQMQT4454-31-51 16:45:00 Test Item Value Reference Range Interpretation Comments Hct (test code = Hct) 42.8 36.0-48.0 [facility] HospitalRlobhczMAJSQJBWAL1588-91-89 16:45:00 Test Item Value Reference Range Interpretation Comments RBC X 10x6 (test code = RBC X 10x6) 4.77 4.20-5.40 [facility] HospitalRdtxotrWYWZFVXIRV9743-64-25 16:45:00 Test Item Value Reference Range Interpretation Comments Hgb (test code = Hgb) 14.5 12.0-16.0 [facility] HospitalYbdwojiTKLLGWMSBA6164-58-13 16:45:00 Test Item Value Reference Range Interpretation Comments RDW (test code = RDW) 13.0 11.5-14.5 [facility] HospitalHplxhbwNQQASMANXM8497-71-08 16:45:00 Test Item Value Reference Range Interpretation Comments MCH (test code = MCH) 30.4 pg 27.0-31.0 [facility] HospitalYmngvtqUYVETWIJGA0561-41-32 16:45:00 Test Item Value Reference Range Interpretation Comments MCHC (test code = MCHC) 33.9 32.0-36.0 [facility] HospitalZpjtwffURXIJVWOCC7403-27-18 16:45:00 Test Item Value Reference Range Interpretation Comments MCV (test code = MCV) 89.7 80.0-98.0 [facility] HospitalQhuxsznGFAEXYLBGR8347-18-30 16:45:00 Test Item Value Reference Range Interpretation Comments MPV (test code = MPV) 10.0 7.4-10.4 [facility] HospitalJjhlrztGLYEMCFIFG3666-52-42 16:45:00 Test Item Value Reference Range Interpretation Comments Platelet (test code = Platelet) 245 133-450 [facility] CenterTneoezwVDFGFHLDQL1679-42-23 16:45:00 Test Item Value Reference Range Interpretation Comments HIV 1/2 Ab (test code Negative *NA*(03/05/15 = HIV 1/2 Ab) 11:45 AM) [facility]DmrkcjnZFFHUGPWDC4928-75-28 16:45:00 Test Item Value Reference Range Interpretation Comments Hep Bs Ag (test code Negative *NA*(03/05/15 = Hep Bs Ag) 11:45 AM) [facility] HospitalWfhawbnBDKESKXCOZ5050-62-00 16:45:00 Test Item Value Reference Range Interpretation Comments Hep C Ab (test code = Negative *NA*(03/05/15 Hep C Ab) 11:45 AM) [facility]2015-09-02 16:45:00 Test Item Value Reference Range Interpretation Comments eGFR (test code = eGFR) 69 [facility]2015-09-02 16:45:00 Test Item Value Reference Range Interpretation Comments Alk Phos (test code = Alk Phos) 65 39-136 [facility]2015-09-02 16:45:00 Test Item Value Reference Range Interpretation Comments ALANINE AMINOTRANSFERASE 20 See_Comment [A utomated message] (test code = ALANINE The sys tem which AMINOTRANSFERASE) generated this result transmitted ref erence range: <=65. Th e reference range was not used to int erpret this result as normal/abnormal . [facility]2015-09-02 16:45:00 Test Item Value Reference Range Interpretation Comments ASPARTATE TRANSAMINASE 25 See_Comment [Aut omated message] (test code = ASPARTATE The s ystem which TRANSAMINASE) generated this result transmitted ref erence range: <=37. Th e reference range was not used to interpr et this result as normal/abnormal . [facility]2015-09-02 16:45:00 Test Item Value Reference Range Interpretation Comments A/G Ratio (test code = A/G Ratio) 1.7 0.7-1.6 [facility]2015-09-02 16:45:00 Test Item Value Reference Range Interpretation Comments Bili Total (test code = Bili Total) 0.7 0.2-1.3 [facility]2015-09-02 16:45:00 Test Item Value Reference Range Interpretation Comments Sodium Lvl (test code = Sodium Lvl) 141 135-145 [facility]2015-09-02 16:45:00 Test Item Value Reference Range Interpretation Comments Creatinine Lvl (test code = Creatinine 0.9 0.5-1.4 Lvl) [facility]2015-09-02 16:45:00 Test Item Value Reference Range Interpretation Comments Potassium Lvl (test code = Potassium 3.8 3.5-5.1 Lvl) [facility]2015-09-02 16:45:00 Test Item Value Reference Range Interpretation Comments Glucose Lvl (test code = Glucose Lvl) 85 70-99 [facility]2015-09-02 16:45:00 Test Item Value Reference Range Interpretation Comments BUN (test code = BUN) 17 7-22 [facility]2015-09-02 16:45:00 Test Item Value Reference Range Interpretation Comments Calcium Lvl (test code = Calcium Lvl) 9.5 8.5-10.5 [facility]2015-09-02 16:45:00 Test Item Value Reference Range Interpretation Comments B/C Ratio (test code = B/C Ratio) 19 6-25 [facility]2015-09-02 16:45:00 Test Item Value Reference Range Interpretation Comments Total Protein (test code = Total 6.9 6.4-8.4 Protein) [facility]2015-09-02 16:45:00 Test Item Value Reference Range Interpretation Comments Chloride Lvl (test code = Chloride Lvl) 100 95-109 [facility]2015-09-02 16:45:00 Test Item Value Reference Range Interpretation Comments CO2 (test code = CO2) 31 24-32 [facility]2015-09-02 16:45:00 Test Item Value Reference Range Interpretation Comments AGAP (test code = AGAP) 13.8 10.0-20.0 [facility]2015-09-02 16:45:00 Test Item Value Reference Range Interpretation Comments Albumin Lvl (test code = Albumin Lvl) 4.3 3.5-5.0 [facility]2015-09-02 16:45:00 Test Item Value Reference Range Interpretation Comments Globulin (test code = Globulin) 2.6 2.0-4.0 [facility] HospitalOmdwufzDVYDSBTRXM9499-85-32 16:45:00 Test Item Value Reference Range Interpretation Comments Monocytes (test code = Monocytes) 8.2 2.0-12.0 [facility] HospitalYjvcjdjJDOXJOSJGB9436-11-39 16:45:00 Test Item Value Reference Range Interpretation Comments Eosinophils (test code = 1.7 See_Comment [A utomated message] The Eosinophils) system which ge nerated this result tra nsmitted reference range : <=4.0. The reference r denise was not used to int erpret this result as normal/abnormal . [facility] HospitalMhngremPANUIFHRLO3260-29-09 16:45:00 Test Item Value Reference Range Interpretation Comments Eosinophils # (test code 0.1 See_Comment [A utomated message] The = Eosinophils #) system whic h generated this result tra nsmitted reference range : <=0.5. The reference r denise was not used to int erpret this result as normal/abnormal . [facility] HospitalEykxbmeQGYBISSOHN7661-24-71 16:45:00 Test Item Value Reference Range Interpretation Comments Monocytes # (test code 0.6 See_Comment [Aut omated message] The = Monocytes #) system which generated this result tra nsmitted reference range : <=0.8. The reference r denise was not used to int erpret this result as normal/abnormal . [facility] HospitalEsjjxliBAWNEITVGL5124-42-30 16:45:00 Test Item Value Reference Range Interpretation Comments Segs (test code = Segs) 67.5 45.0-75.0 [facility] HospitalJtxmxlhWFKWUPRRCW8040-34-04 16:45:00 Test Item Value Reference Range Interpretation Comments Lymphocytes (test code = Lymphocytes) 22.2 20.0-40.0 [facility] HospitalArxrthxHKTMJTJFOL7707-23-95 16:45:00 Test Item Value Reference Range Interpretation Comments Basophils (test code = 0.4 See_Comment [Aut omated message] The Basophils) system which ge nerated this result tra nsmitted reference range : <=1.0. The reference r denise was not used to int erpret this result as normal/abnormal . [facility] HospitalMajvwklWYMBCBAYAG7009-59-93 16:45:00 Test Item Value Reference Range Interpretation Comments Segs-Bands # (test code = Segs-Bands #) 4.8 1.5-8.1 [facility] HospitalZdzgrklCMSCEIKLMG8197-49-31 16:45:00 Test Item Value Reference Range Interpretation Comments Lymphocytes # (test code = Lymphocytes 1.6 1.0-5.5 #) [facility] HospitalBmwdgsaBCYRGZKBOY6514-87-98 16:45:00 Test Item Value Reference Range Interpretation Comments Basophils # (test code 0.0 See_Comment [Aut omated message] The = Basophils #) system which generated this result tra nsmitted reference range : <=0.2. The reference r denise was not used to int erpret this result as normal/abnormal . [facility]KcktodcCBLWWOIQUI2247-28-46 16:45:00 Test Item Value Reference Range Interpretation Comments INR (test code = INR) 1.01 [id number] 16:45:00 Test Item Value Reference Range Interpretation Comments PROTIME (test code = PROTIME) 9.9 s 9.0-10.6 [facility] HospitalCcpybwlIKNCVGMZAT6022-31-77 16:45:00 Test Item Value Reference Range Interpretation Comments aPTT (test code = aPTT) 25.0 s 23.0-28.2 [facility] HospitalMhovbjlDKDOEDVZSV1321-68-46 16:45:00 Test Item Value Reference Range Interpretation Comments WBC X 10x3 (test code = WBC X 10x3) 7.1 3.7-10.4 [facility] HospitalLtbjyvcABFGRBSGCX8867-32-59 16:45:00 Test Item Value Reference Range Interpretation Comments Hct (test code = Hct) 42.8 36.0-48.0 [facility] HospitalXihtyigMSEYGDNWXL7915-35-35 16:45:00 Test Item Value Reference Range Interpretation Comments RBC X 10x6 (test code = RBC X 10x6) 4.77 4.20-5.40 [facility] HospitalFnytsruVXBNFXOYVG4206-61-88 16:45:00 Test Item Value Reference Range Interpretation Comments Hgb (test code = Hgb) 14.5 12.0-16.0 [facility] HospitalLichxqxREDVJKGQVK4244-95-18 16:45:00 Test Item Value Reference Range Interpretation Comments RDW (test code = RDW) 13.0 11.5-14.5 [facility] HospitalIgvszbwSHYXOAJYFG8584-19-40 16:45:00 Test Item Value Reference Range Interpretation Comments MCH (test code = MCH) 30.4 pg 27.0-31.0 [facility] HospitalDzrdsuhUWYVDABXAT1797-30-68 16:45:00 Test Item Value Reference Range Interpretation Comments MCHC (test code = MCHC) 33.9 32.0-36.0 [facility] HospitalGcyannbOSBBADOSVA9521-78-86 16:45:00 Test Item Value Reference Range Interpretation Comments MCV (test code = MCV) 89.7 80.0-98.0 [facility] HospitalIumkmtvQSNNTDDKRQ9664-04-03 16:45:00 Test Item Value Reference Range Interpretation Comments MPV (test code = MPV) 10.0 7.4-10.4 [facility] HospitalPzgbrpkJZFMBLZLRE8971-88-93 16:45:00 Test Item Value Reference Range Interpretation Comments Platelet (test code = Platelet) 245 133-450 [facility]WiapjfoDUYXFRLXHK1973-08-[facility] 16:45:00 Test Item Value Reference Range Interpretation Comments HIV 1/2 Ab (test code Negative *NA*(03/05/15 = HIV 1/2 Ab) 11:45 AM) [facility] HospitalDwqlkkrXJSYISHICB3610-83-20 16:45:00 Test Item Value Reference Range Interpretation Comments Hep Bs Ag (test code Negative *NA*(03/05/15 = Hep Bs Ag) 11:45 AM) [facility] HospitalDgbeqomAEBRMOQQGJ9776-11-54 16:45:00 Test Item Value Reference Range Interpretation Comments Hep C Ab (test code = Negative *NA*(03/05/15 Hep C Ab) 11:45 AM) [facility] HospitalMljzkduWPIIHRLNPV9690-59-74 16:45:00 Test Item Value Reference Range Interpretation Comments Hgb (test code = Hgb) 14.5 12.0-16.0 [facility] HospitalNyuftvlYUXIOLESFT0194-68-98 16:45:00 Test Item Value Reference Range Interpretation Comments RDW (test code = RDW) 13.0 11.5-14.5 [facility] HospitalYfamwmkSDSUPEYJUM0287-68-26 16:45:00 Test Item Value Reference Range Interpretation Comments MCH (test code = MCH) 30.4 pg 27.0-31.0 [facility] HospitalKhagmqwHJOHFJBJVT4297-18-19 16:45:00 Test Item Value Reference Range Interpretation Comments MCHC (test code = MCHC) 33.9 32.0-36.0 [facility] HospitalXlhdbcsOADHJICUOI9588-43-97 16:45:00 Test Item Value Reference Range Interpretation Comments MCV (test code = MCV) 89.7 80.0-98.0 [facility] HospitalNzjuelwZHIXLIBJPC3727-49-57 16:45:00 Test Item Value Reference Range Interpretation Comments MPV (test code = MPV) 10.0 7.4-10.4 [facility]FpfnnomOYPPWJWNPL4464-57-74 16:45:00 Test Item Value Reference Range Interpretation Comments Platelet (test code = Platelet) 245 133-450 [facility] CenterDyyhwjpATGQIGVYNU0525-58-20 16:45:00 Test Item Value Reference Range Interpretation Comments HIV 1/2 Ab (test code Negative *NA*(03/05/15 = HIV 1/2 Ab) 11:45 AM) [facility] CenterUbnlszqSYXIXIUZQU2905-50-34 16:45:00 Test Item Value Reference Range Interpretation Comments Hep Bs Ag (test code Negative *NA*(03/05/15 = Hep Bs Ag) 11:45 AM) [facility] CenterJqpzqrmFSRUTYUPEZ6496-11-74 16:45:00 Test Item Value Reference Range Interpretation Comments Hep C Ab (test code = Negative *NA*(03/05/15 Hep C Ab) 11:45 AM) [facility]2015-09-02 16:45:00 Test Item Value Reference Range Interpretation Comments eGFR (test code = eGFR) 69 [facility]2015-09-02 16:45:00 Test Item Value Reference Range Interpretation Comments Alk Phos (test code = Alk Phos) 65 39-136 [facility]2015-09-02 16:45:00 Test Item Value Reference Range Interpretation Comments ALANINE AMINOTRANSFERASE 20 See_Comment [A utomated message] (test code = ALANINE The sys tem which AMINOTRANSFERASE) generated this result transmitted ref erence range: <=65. Th e reference range was not used to int erpret this result as normal/abnormal . [facility]2015-09-02 16:45:00 Test Item Value Reference Range Interpretation Comments ASPARTATE TRANSAMINASE 25 See_Comment [Aut omated message] (test code = ASPARTATE The s ystem which TRANSAMINASE) generated this result transmitted ref erence range: <=37. Th e reference range was not used to interpr et this result as normal/abnormal . [facility]2015-09-02 16:45:00 Test Item Value Reference Range Interpretation Comments A/G Ratio (test code = A/G Ratio) 1.7 0.7-1.6 [facility]2015-09-02 16:45:00 Test Item Value Reference Range Interpretation Comments Bili Total (test code = Bili Total) 0.7 0.2-1.3 [facility]2015-09-02 16:45:00 Test Item Value Reference Range Interpretation Comments Sodium Lvl (test code = Sodium Lvl) 141 135-145 [facility]2015-09-02 16:45:00 Test Item Value Reference Range Interpretation Comments Creatinine Lvl (test code = Creatinine 0.9 0.5-1.4 Lvl) [facility]2015-09-02 16:45:00 Test Item Value Reference Range Interpretation Comments Potassium Lvl (test code = Potassium 3.8 3.5-5.1 Lvl) [facility]2015-09-02 16:45:00 Test Item Value Reference Range Interpretation Comments Glucose Lvl (test code = Glucose Lvl) 85 70-99 [facility]2015-09-02 16:45:00 Test Item Value Reference Range Interpretation Comments BUN (test code = BUN) 17 7-22 [facility]2015-09-02 16:45:00 Test Item Value Reference Range Interpretation Comments Calcium Lvl (test code = Calcium Lvl) 9.5 8.5-10.5 [facility]2015-09-02 16:45:00 Test Item Value Reference Range Interpretation Comments B/C Ratio (test code = B/C Ratio) 19 6-25 [facility]2015-09-02 16:45:00 Test Item Value Reference Range Interpretation Comments Total Protein (test code = Total 6.9 6.4-8.4 Protein) [facility]2015-09-02 16:45:00 Test Item Value Reference Range Interpretation Comments Chloride Lvl (test code = Chloride Lvl) 100 95-109 [facility]2015-09-02 16:45:00 Test Item Value Reference Range Interpretation Comments CO2 (test code = CO2) 31 24-32 [facility]2015-09-02 16:45:00 Test Item Value Reference Range Interpretation Comments AGAP (test code = AGAP) 13.8 10.0-20.0 [facility]2015-09-02 16:45:00 Test Item Value Reference Range Interpretation Comments Albumin Lvl (test code = Albumin Lvl) 4.3 3.5-5.0 [facility]2015-09-02 16:45:00 Test Item Value Reference Range Interpretation Comments Globulin (test code = Globulin) 2.6 2.0-4.0 [facility] HospitalWeyzyvkEGKRKBUIOI0485-84-15 16:45:00 Test Item Value Reference Range Interpretation Comments Monocytes (test code = Monocytes) 8.2 2.0-12.0 [facility] HospitalCdhxnigMQUECFNXQC9407-51-69 16:45:00 Test Item Value Reference Range Interpretation Comments Eosinophils (test code = 1.7 See_Comment [A utomated message] The Eosinophils) system which ge nerated this result tra nsmitted reference range : <=4.0. The reference r denise was not used to int erpret this result as normal/abnormal . [facility] HospitalWorvouuZWKEOUTMEX9248-30-48 16:45:00 Test Item Value Reference Range Interpretation Comments Eosinophils # (test code 0.1 See_Comment [A utomated message] The = Eosinophils #) system wh h generated this result tra nsmitted reference range : <=0.5. The reference r denise was not used to int erpret this result as normal/abnormal . [facility] HospitalBbzlpteTLAOQIFVVD9145-14-69 16:45:00 Test Item Value Reference Range Interpretation Comments Monocytes # (test code 0.6 See_Comment [Aut omated message] The = Monocytes #) system which generated this result tra nsmitted reference range : <=0.8. The reference r denise was not used to int erpret this result as normal/abnormal . [facility] HospitalWqrxrkuMUXTEPJRHR8863-83-37 16:45:00 Test Item Value Reference Range Interpretation Comments Segs (test code = Segs) 67.5 45.0-75.0 [facility] HospitalXcdexlqJBBJRBNPOO6193-20-50 16:45:00 Test Item Value Reference Range Interpretation Comments Lymphocytes (test code = Lymphocytes) 22.2 20.0-40.0 [facility] HospitalDnbzzroSGNKNLZSVX2322-85-19 16:45:00 Test Item Value Reference Range Interpretation Comments Basophils (test code = 0.4 See_Comment [Aut omated message] The Basophils) system which ge nerated this result tra nsmitted reference range : <=1.0. The reference r denise was not used to int erpret this result as normal/abnormal . [facility] Hospit[id number] 16:45:00 Test Item Value Reference Range Interpretation Comments Segs-Bands # (test code = Segs-Bands #) 4.8 1.5-8.1 [facility] HospitalOrantqrMQQJGZIEVS2777-47-01 16:45:00 Test Item Value Reference Range Interpretation Comments Lymphocytes # (test code = Lymphocytes 1.6 1.0-5.5 #) [facility] HospitalYbdmvorWRATSGUERG1307-67-58 16:45:00 Test Item Value Reference Range Interpretation Comments Basophils # (test code 0.0 See_Comment [Aut omated message] The = Basophils #) system which generated this result tra nsmitted reference range : <=0.2. The reference r denise was not used to int erpret this result as normal/abnormal . [facility] HospitalYoegdzuCAVZORJRVL5272-99-71 16:45:00 Test Item Value Reference Range Interpretation Comments INR (test code = INR) 1.01 [facility]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
[2023-02-17] MEDS ORDERED: NA CHLORIDE 0.9% 1,000 ML ONE (19:51)
[2023-02-17 19:55] LABS: Absolute Lymphocytes (CBC) 1.5 K/uL (0.7-4.9); Hematocrit 39.2 % (36.0-45.0); Lymphocytes % 28.2 % (15.3-44.8); MCV 87.1 fL (80-100); MPV 7.5 fL (7.6-11.3); Platelets 236 thou/uL (152-406); RBC Red Blood Cell Count 4.49 M/uL (3.86-4.86)
[2023-02-17 20:10] LABS: Albumin 3.4 g/dL (3.4-5.0); Bilirubin Total 0.6 mg/dL (0.2-1.0); Potassium 3.7 mEq/L (3.5-5.1)
--- NOTE | 2023-02-17 20:46 | RAD REPORT ---
EXAM DESCRIPTION: CT - Head Brain Wo Cont - 02/17/2023 8:28 pm CLINICAL HISTORY: HEADACHE COMPARISON: Sinus Wo Cont dated 09/14/2021 TECHNIQUE: All CT scans are performed using dose optimization technique as appropriate and may inclu de automated exposure control or mA/KV adjustment according to patient size. FINDINGS: No intracranial hemorrhage, hydrocephalus or extra-axial fluid collection.No areas of brai n edema or evidence of midline shift. The paranasal sinuses and mastoids are clear. The calvarium is intact. IMPRESSION: No acute intracranial abnormality.
--- NOTE | 2023-02-17 20:50 | RAD REPORT ---
EXAM DESCRIPTION: CTAbdomen Pelvis W Contrast - 02/17/2023 8:28 pm CLINICAL HISTORY: ABD PAIN COMPARISON: Abdomen Pelvis W Contrast dated 05/14/2019; Abdomen Pelvis W Contrast dated 8; CT ABD PELVIS W CONTRAST dated 03/09/2014; CT ABD PELVIS W CONTRAST dated 09/16/2012 TECHNIQUE: CT of the abdomen and pelvis was performed. All CT scans are performed using dose optimization technique as appropriate and may include automated exposure control or mA/KV adjustment according to patient size. FINDINGS: Lower chest: No acute abnormality. Liver: Too small to characterize liver lesions which are likely benign. Biliary: Cholecystectomy. Stomach: No significant focal abnormality. Duodenum: No significant focal abnormality. Pancreas: No significant abnormality. Spleen: No significant abnormality. Adrenal: No suspicious lesions. Kidney/ureter: No hydronephrosis. No renal calculi. Retroperitoneum: No retroperitoneal adenopathy. Vascular: No aneurysm. Bowel: No significant focal abnormality. Peritoneum: No ascites or free air. Bladder: Grossly unremarkable. Reproductive: No adnexal masses. Bones: No acute fracture. L5-S1 fusion. Interbody cage. Other: Shrapnel adjacent to the left third transverse process. . IMPRESSION: No acute intra-abdominal or pelvic finding.
[2023-02-17 21:36] LABS: Specific Gravity > 1.030 (1.005-1.030); Urine Bilirubin NEGATIVE (Negative); Urine Blood Negative (Negative); Urine Clarity Clear (Clear); Urine Color Light-Yellow (Yellow); Urine Glucose NEGATIVE (Negative); Urine Protein NEGATIVE (Negative); Urine Urobilinogen Normal (Normal); Urine pH 5.5 (5.0-7.0)
--- NOTE | 2023-02-17 22:15 | ER ---
Nurse's Notes [facility] Name: Lena Garcia Age: 72 yrs Sex: Female : 1950 Arrival Date: 02/17/2023 Time: 18:33 Bed 7 Private MD: Diagnosis: Headache;Abdominal pain, Generalized;Lower abdominal pain, unspecified Presentation: 02/17 18:58 Chief complaint: Patient states: umbilical pain X2-[address] Ramsey today and cm10 was told to come to the ED. Pt states that the pain is intermittent. Coronavirus screen: Vaccine status: Patient reports receiving the 2nd dose of the covid vaccine. Ebola Screen: Patient denies travel to an Ebola-affected area in the 21 days before illness onset. No symptoms or risks identified at this time. Initial Sepsis Screen: Does the patient meet any 2 criteria? No. Patient's initial sepsis screen is negative. Does the patient have a suspected source of infection? No. Patient's initial sepsis screen is negative. Risk Assessment: Do you want to hurt yourself or someone else? Patient reports no desire to harm self or others. Onset of symptoms was February 17, 2023. 18:58 Method Of Arrival: Ambulatory cm10 18:58 Acuity: ROSEMARY 3 cm10 Historical: - Allergies: 19:00 Celebrex; cm10 - PMHx: 19:00 gastritis; GERD; Osteoporosis; RA; SLE; TMJ; mitral valve prolapse; cm10 - Immunization history:: Adult Immunizations up to date. - Social history:: Smoking status: Patient denies any tobacco usage or history of. - Family history:: not pertinent. Screenin:05 [facility] ED Fall Risk Assessment (Adult) Score/Fall Risk Level 0 - 2 = Low Risk. Abuse as6 screen: Denies threats or abuse. Denies injuries from another. Nutritional screening: No deficits noted. Tuberculosis screening: No symptoms or risk factors identified. Assessment: 19:22 General: Appears in no apparent distress. slender, Behavior is calm, cooperative. Pain: as6 Complains of pain in suprapubic area, right lower quadrant and left lower quadrant Quality of pain is described as sharp, stabbing, Is intermittent. Neuro: Level of Consciousness is awake, alert, obeys commands, Oriented to person, place, time, situation, Reports headache. Cardiovascular: Capillary refill < 3 seconds Patient's skin is warm and dry. Respiratory: Respiratory effort is even, unlabored, Respiratory pattern is regular, symmetrical. GI: Reports lower abdominal pain, Patient currently denies constipation, diarrhea, nausea, vomiting. 20:36 Reassessment: Patient appears in no apparent distress at this time. Patient and/or as6 family updated on plan of care and expected duration. Pain level reassessed. Patient is alert, oriented x 3, equal unlabored respirations, skin warm/dry/pink. Vital Signs: 18:58 BP 129 / 78; Pulse 65; Resp 16; Temp 98.7; Pulse Ox 100% ; Weight 47.63 kg; Height 5 cm10 ft. 3 in. ; Pain 2/10; 19:24 BP 138 / 64; Pulse 65; Resp 18 S; Pulse Ox 100% on R/A; as6 20:35 BP 130 / 70; Pulse 66; Resp 18 S; Pulse Ox 100% on R/A; as6 22:17 BP 128 / 71; Pulse 65; Resp 18 S; Pulse Ox 100% on R/A; as6 18:58 Body Mass Index 18.60 (47.63 kg, 160.02 cm) cm10 18:58 Pain Scale: Adult cm10 ED Course: 18:35 Patient arrived in ED. rg4 18:35 Bronson Reyes MD is Attending Physician. rt 19:00 Triage completed. cm10 19:01 Arm band placed on Patient placed in an exam room. cm10 19:05 Ray Hernandez, RN is Primary Nurse. as6 19:22 Inserted saline lock: 20 gauge in right antecubital area, using aseptic technique. as6 Blood collected. 19:23 Placed in gown. Bed in low position. Call light in reach. as6 19:24 CBC with Diff Sent. as6 19:24 CMP Sent. as6 19:24 Lipase Sent. as6 20:30 CT Abd/Pelvis - IV Contrast Only In Process Unspecified. EDMS 20:30 CT Head Brain wo Cont In Process Unspecified. EDMS 21:17 Urinalysis w/ reflexes Sent. as6 21:28 Attending Physician role handed off by Bronson Reyes MD kdr 21:28 Stew Richardson MD is Attending Physician. kdr 22:18 Provided Education on: discharge teaching, follow up. as6 22:18 No provider procedures requiring assistance completed. as6 22:20 IV discontinued, intact, bleeding controlled, No redness/swelling at site. Pressure as6 dressing applied. Administered Medications: 19:42 Drug: NS 0.9% IV 1000 ml Route: IV; Rate: 1 bolus; Site: right antecubital; as6 22:18 Follow up: Response: No adverse reaction; IV Status: Completed infusion; IV Intake: as6 1000ml Medication: 19:06 VIS not applicable for this client. as6 Intake: 22:18 IV: 1000ml; Total: 1000ml. as6 Outcome: 22:14 Discharge ordered by MD. kdr 22:18 Discharged to home ambulatory, with significant other. as6 22:18 Condition: stable 22:20 Discharge instructions given to patient, significant other, Instructed on discharge as6 instructions, follow up and referral plans. Demonstrated understanding of instructions, follow-up care. 22:21 Patient left the ED. as6 Signatures: Dispatcher [employer] EDMS Stew Richardson MD MD kdr Felisha Roberts rg4 Ray Hernandez, RN RN as6 Bronson Reyes MD MD rt Merle Cowan, RN RN cm10
--- NOTE | 2023-02-17 22:15 | EDPHYS ---
Physician Documentation [facility] Name: Lena Garcia Age: 72 yrs Sex: Female : 1950 Arrival Date: 02/17/2023 Time: 18:33 Bed 7 Private MD: ED Physician Stew Richardson HPI: 02/17 20:59 This 72 yrs old Female presents to ER via Ambulatory with complaints of Headache, rt Abdominal Pain. 20:59 Patient was sent to the ED by Dr. Ramsey for headache as well as an abdominal pain. The rt patient states that the abdominal pain has been intermittent for couple weeks now, the headache is new today. These are both mild in severity, she denies any abdominal pain at this time or any needs for pain medications. She denies any nausea, vomiting. Dr. Ramsey is concerned the patient may have a bowel obstruction or stricture. Request the patient pain labs, CT scan. Denies other acute complaints this time, symptoms are mild severity, no other aggravating alleviating factors.. Historical: - Allergies: 19:00 Celebrex; cm10 - PMHx: 19:00 gastritis; GERD; Osteoporosis; RA; SLE; TMJ; mitral valve prolapse; cm10 - Immunization history:: Adult Immunizations up to date. - Social history:: Smoking status: Patient denies any tobacco usage or history of. - Family history:: not pertinent. ROS: 20:59 Constitutional: Negative for fever, chills, and weight loss, Cardiovascular: Negative rt for chest pain, palpitations, and edema, Respiratory: Negative for shortness of breath, cough, wheezing, and pleuritic chest pain, MS/Extremity: Negative for injury and deformity, Skin: Negative for injury, rash, and discoloration, Psych: Negative for depression, anxiety, suicide ideation, homicidal ideation, and hallucinations. 20:59 Abdomen/GI: Positive for abdominal pain, Negative for nausea and vomiting. 20:59 Neuro: Positive for headache, Negative for altered mental status. Exam: 20:59 Constitutional: This is a well developed, well nourished patient who is awake, alert, rt and in no acute distress. Head/Face: Normocephalic, atraumatic. Chest/axilla: Normal chest wall appearance and motion. Nontender with no deformity. No lesions are appreciated. Cardiovascular: Regular rate and rhythm with a normal S1 and S2. No gallops, murmurs, or rubs. Normal PMI, no JVD. No pulse deficits. Respiratory: Lungs have equal breath sounds bilaterally, clear to auscultation and percussion. No rales, rhonchi or wheezes noted. No increased work of breathing, no retractions or nasal flaring. Abdomen/GI: Soft, non-tender, with normal bowel sounds. No distension or tympany. No guarding or rebound. No evidence of tenderness throughout. Skin: Warm, dry with normal turgor. Normal color with no rashes, no lesions, and no evidence of cellulitis. MS/ Extremity: Pulses equal, no cyanosis. Neurovascular intact. Full, normal range of motion. Neuro: Awake and alert, GCS 15, oriented to person, place, time, and situation. Cranial nerves II-XII grossly intact. Motor strength 5/5 in all extremities. Sensory grossly intact. Cerebellar exam normal. Normal gait. Psych: Awake, alert, with orientation to person, place and time. Behavior, mood, and affect are within normal limits. Vital Signs: 18:58 BP 129 / 78; Pulse 65; Resp 16; Temp 98.7; Pulse Ox 100% ; Weight 47.63 kg; Height 5 cm10 ft. 3 in. ; Pain 2/10; 19:24 BP 138 / 64; Pulse 65; Resp 18 S; Pulse Ox 100% on R/A; as6 20:35 BP 130 / 70; Pulse 66; Resp 18 S; Pulse Ox 100% on R/A; as6 22:17 BP 128 / 71; Pulse 65; Resp 18 S; Pulse Ox 100% on R/A; as6 18:58 Body Mass Index 18.60 (47.63 kg, 160.02 cm) cm10 18:58 Pain Scale: Adult cm10 MDM: 19:05 Patient medically screened. rt 22:48 Data reviewed: vital signs, nurses notes. kdr 02/17 19:12 Order name: CBC with Diff; Complete Time: 20:45 rt 02/17 19:12 Order name: CMP; Complete Time: 20:45 rt 02/17 19:12 Order name: Lipase; Complete Time: 20:45 rt 02/17 19:12 Order name: Urinalysis w/ reflexes; Complete Time: 22:07 rt 02/17 19:12 Order name: CT Abd/Pelvis - IV Contrast Only; Complete Time: 20:52 rt 02/17 19:12 Order name: CT Head Brain wo Cont; Complete Time: 20:52 rt 02/17 19:12 Order name: IV Saline Lock; Complete Time: 19:24 rt 02/17 19:12 Order name: Labs collected and sent; Complete Time: 19:24 rt Administered Medications: 19:42 Drug: NS 0.9% IV 1000 ml Route: IV; Rate: 1 bolus; Site: right antecubital; as6 22:18 Follow up: Response: No adverse reaction; IV Status: Completed infusion; IV Intake: as6 1000ml Disposition Summary: 02/17/23 22:14 Discharge Ordered Location: Home kdr Problem: new kdr Symptoms: have improved kdr Condition: Stable kdr Diagnosis - Headache kdr - Abdominal pain, Generalized kdr - Lower abdominal pain, unspecified kdr Followup: kdr - With: Private Physician - When: 2 - 3 days - Reason: If symptoms return, Further diagnostic work-up, Recheck today's complaints, Continuance of care, Re-evaluation by your physician Discharge Instructions: - Discharge Summary Sheet kdr - General Headache Without Cause kdr - Abdominal Pain, Adult, [id number] kdr Forms: - Medication Reconciliation Form kdr - Thank You Letter kdr - Patient Portal Instructions kdr - Leadership Thank You Letter kdr Signatures: Dispatcher [employer] Stew Nguyễn MD MD kdr Ray Hernandez, ELO RN as6 Bronson Reyes MD MD rt Merle Cowan, RN RN cm10
[2023-02-17 23:19] VITALS: TEMP 98.7; O2SAT 100
[2023-02-17 23:35] VITALS: BP 128/71
== END 2023-02-17 22:21 | disposition home or self-care (01) ==
LOC: ER 18:33
DX: R51.9 Headache, unspecified (principal); R10.84 Generalized abdominal pain; R10.30 Lower abdominal pain, unspecified; Z88.8 Allergy status to other drugs, medicaments and biological substances
CPT/HCPCS: 96361; 85025; 36415; 81003; 83690; 80053; 70450; 74177; 96360; 99284; Q9967; J7030